=== PATIENT | female | born 1995 | race Two or more races ===

== ENCOUNTER → 2020-11-24 | Outpatient (CLI) | payer OTHER ==
[2020-11-24 16:08] LABS: ALBUMIN 3.7 GM/DL (3.2-5.2); ALT/SGPT 34 U/L (12-78); BILIRUBIN,TOTAL 1.2 MG/DL (0.2-1.0); BLOOD UREA NITROGEN 12 MG/DL (7-18); CALCIUM LEVEL 8.7 MG/DL (8.5-10.1); CARBON DIOXIDE LEVEL 27 MEQ/L (21-32); CHLORIDE LEVEL 107 MEQ/L (98-107); CHOLESTEROL LEVEL 204 MG/DL (<200); CREATININE FOR GFR 0.74 MG/DL (0.55-1.30); FREE T4 0.79 NG/DL (0.76-1.46); GLOMERULAR FILTRATION RATE > 60.0 (>60); GLUCOSE, FASTING 75 MG/DL (70-100); HDL CHOLESTEROL 75 MG/DL (>40); LDL CHOLESTEROL 119 MG/DL (<100); NON-HDL-C 129 MG/DL; POTASSIUM SERUM 4.7 MEQ/L (3.5-5.1); SODIUM LEVEL 136 MEQ/L (136-145); TOTAL PROTEIN 7.6 GM/DL (6.4-8.2); TRIGLYCERIDES LEVEL 48 MG/DL (<150)
[2020-11-24 16:11] LABS: TOTAL 25(OH) VITAMIN D 21.9 NG/ML (30.0-100.0)
== END ==
LOC: M PLALAB 11:39
PROVIDERS: ATTEND Nurse Practitioner Family
DX: Z13.1 Encounter for screening for diabetes mellitus (principal); Z13.220 Encounter for screening for lipoid disorders; E55.9 Vitamin D deficiency, unspecified

== ENCOUNTER 2021-01-15 17:51 | Emergency (ER) | payer OTHER ==
[~2021-01-15] VITALS: Ht 165.1 cm; Wt 51.5 kg
--- OUTSIDE RECORDS SUMMARY | 2021-01-15 17:58 | CCD ---
Author Author [facility] Organization [facility] Address Unknown Phone Unavailable Care Team Providers Care Facial Operator Name Role Phone MARIA L, M AMANDA CNM Unavailable Unavailable MARIA L, M AMANDA CNM Unavailable Unavailable MARIA L, M AMANDA CNM Unavailable Unavailable MARIA L, M AMANDA CNM Unavailable Unavailable MARIA L, M AMANDA CNM Unavailable Unavailable MARIA L, M AMANDA CNM Unavailable Unavailable MARIA L, M AMANDA CNM Unavailable Unavailable MARIA L, M AMANDA CNM Unavailable Unavailable MARIA L, M AMANDA CNM Unavailable Unavailable MARIA L, M AMANDA CNM Unavailable Unavailable MARIA L, M AMANDA CNM Unavailable Unavailable MARIA L, M AMANDA CNM Unavailable Unavailable MARIA L, M AMANDA CNM Unavailable Unavailable MARIA L, M AMANDA CNM Unavailable Unavailable MARIA L, M AMANDA CNM Unavailable Unavailable MARIA L, M AMANDA CNM Unavailable Unavailable MARIA L, M AMANDA CNM Unavailable Unavailable MARIA L, M AMANDA CNM Unavailable Unavailable MARIA L, M AMANDA CNM Unavailable Unavailable MARIA L, M AMANDA CNM Unavailable Unavailable MARIA L, M AMANDA CNM Unavailable Unavailable MARIA L, M AMANDA CNM Unavailable Unavailable MARIA L, M AMANDA CNM Unavailable Unavailable MARIA L, M AMANDA CNM Unavailable Unavailable MARIA L, M AMANDA CNM Unavailable Unavailable MARIA L, M AMANDA CNM Unavailable Unavailable MARIA L, M AMANDA CNM Unavailable Unavailable MARIA L, M AMANDA CNM Unavailable Unavailable MARIA L, M AMANDA CNM Unavailable Unavailable MARIA L, M AMANDA CNM Unavailable Unavailable MARIA L, M AMANDA CNM Unavailable Unavailable MARIA L, M AMANDA CNM Unavailable Unavailable MARIA L, M AMANDA CNM Unavailable Unavailable Tino ZARATE CNM Unavailable Unavailable Nba NEFF MD Unavailable Unavailable Nba NEFF MD Unavailable Unavailable Nba NEFF MD Unavailable Unavailable Nba NEFF MD Unavailable Unavailable Nba NEFF MD Unavailable Unavailable Nba NEFF MD Unavailable Unavailable Nba NEFF MD Unavailable Unavailable Nba NEFF MD Unavailable Unavailable Nba NEFF MD Unavailable Unavailable Nba NEFF MD Unavailable Unavailable Nba NEFF MD Unavailable Unavailable Nba NEFF MD Unavailable Unavailable Nba NEFF MD Unavailable Unavailable Nba NEFF MD Unavailable Unavailable Nba NEFF MD Unavailable Unavailable Nba NEFF MD Unavailable Unavailable Nba NEFF MD Unavailable Unavailable Nba NEFF MD Unavailable Unavailable Nba NEFF MD Unavailable Unavailable Nba NEFF MD Unavailable Unavailable Nba NEFF MD Unavailable Unavailable Nba NEFF MD Unavailable Unavailable Nba NEFF MD Unavailable Unavailable Nba NEFF MD Unavailable Unavailable Gordo, L Janee WOOL MIXER Unavailable Unavailable Gordo, L Janee WOOL MIXER Unavailable Unavailable Gordo, L Janee WOOL MIXER Unavailable Unavailable Gordo, L Janee WOOL MIXER Unavailable Unavailable Gordo, L Janee WOOL MIXER Unavailable Unavailable Gordo, L Janee WOOL MIXER Unavailable Unavailable Gordo, L Janee WOOL MIXER Unavailable Unavailable Gordo, L Janee WOOL MIXER Unavailable Unavailable Gordo, L Janee WOOL MIXER Unavailable Unavailable Gordo, L Janee WOOL MIXER Unavailable Unavailable Gordo, L Janee WOOL MIXER Unavailable Unavailable Gordo, L Janee WOOL MIXER Unavailable Unavailable Gordo, L Janee WOOL MIXER Unavailable Unavailable LAROCK, J ANTONIA WOOL MIXER Unavailable Unavailable LAROCK, Mica ANTONIA WOOL MIXER Unavailable Unavailable LAROCK, J ANTONIA WOOL MIXER Unavailable Unavailable LAROCK, J ANTONIA WOOL MIXER Unavailable Unavailable LAROCK, J ANTONIA WOOL MIXER Unavailable Unavailable LAROCK, J ANTONIA WOOL MIXER Unavailable Unavailable LAROCK, J ANTONIA WOOL MIXER Unavailable Unavailable LAROCK, J ANTONIA WOOL MIXER Unavailable Unavailable LAROCK, J ANTONIA WOOL MIXER Unavailable Unavailable LAROCK, J ANTONIA WOOL MIXER Unavailable Unavailable LAROCK, J ANTONIA WOOL MIXER Unavailable Unavailable LAROCK, J ANTONIA WOOL MIXER Unavailable Unavailable LAROCK, J ANTONIA WOOL MIXER Unavailable Unavailable LAROCK, Mica KNIGHT WOOL MIXER Unavailable Unavailable LAROCK, J ANTONIA WOOL MIXER Unavailable Unavailable LAROCK, J ANTONIA WOOL MIXER Unavailable Unavailable LAROCK, Mica KNIGHT WOOL MIXER Unavailable Unavailable LAROCK, Mica KNIGHT WOOL MIXER Unavailable Unavailable LAROCK, Mica KNIGHT WOOL MIXER Unavailable Unavailable LAROCK, Mica KNIGHT WOOL MIXER Unavailable Unavailable LAROCK, Mica KNIGHT WOOL MIXER Unavailable Unavailable LAROCK, Mica KNIGHT WOOL MIXER Unavailable Unavailable [facility], [facility] Unavailable Unavailable Sousou, Sandy PA Unavailable Unavailable Sousou, Sandy PA Unavailable Unavailable Sousou, Sandy PA Unavailable Unavailable Sousou, Sandy PA Unavailable Unavailable Sousou, Sandy PA Unavailable Unavailable Sousou, Sandy PA Unavailable Unavailable Sousou, Sandy PA Unavailable Unavailable Sousou, Sandy PA Unavailable Unavailable Sousou, Sandy PA Unavailable Unavailable Sousou, Sandy PA Unavailable Unavailable Sousou, Sandy PA Unavailable Unavailable Sousou, Sandy PA Unavailable Unavailable Sousou, Sandy PA Unavailable Unavailable Sousou, Sandy PA Unavailable Unavailable Sousou, Sanyd PA Unavailable Unavailable Sousou, Sandy PA Unavailable Unavailable Sousou, Sandy PA Unavailable Unavailable Sousou, Sandy PA Unavailable Unavailable TURRIN, EMIR Unavailable Unavailable TURRIN, EMIR Unavailable Unavailable TURRIN, EMIR Unavailable Unavailable TURRIN, EMIR Unavailable Unavailable Groch, R Marvin DO Unavailable Unavailable Groch, R Marvin DO Unavailable Unavailable Groch, R Marvin DO Unavailable Unavailable Groch, R Marvin DO Unavailable Unavailable Groch, R Marvin DO Unavailable Unavailable Groch, R Marvin DO Unavailable Unavailable Groch, R Marvin DO Unavailable Unavailable Groch, R Marvin DO Unavailable Unavailable Groch, R Marvin DO Unavailable Unavailable Groch, R Marvin DO Unavailable Unavailable Groch, R Marvin DO Unavailable Unavailable Groch, R Marvin DO Unavailable Unavailable Groch, R Marvin DO Unavailable Unavailable Groch, R Marvin DO Unavailable Unavailable Groch, R Marvin DO Unavailable Unavailable Groch, R Marvin DO Unavailable Unavailable Groch, R Marvin DO Unavailable Unavailable Groch, R Marvin DO Unavailable Unavailable Groch, R Marvin DO Unavailable Unavailable Groch, R Marvin DO Unavailable Unavailable Groch, R Marvin DO Unavailable Unavailable Groch, R Marvin DO Unavailable Unavailable Groch, R Marvin DO Unavailable Unavailable Groch, R Marvin DO Unavailable Unavailable Groch, R Marvin DO Unavailable Unavailable Groch, R Marvin DO Unavailable Unavailable Groch, R Marvin DO Unavailable Unavailable Groch, R Marvin DO Unavailable Unavailable Groch, R Marvin DO Unavailable Unavailable Groch, R Marvin DO Unavailable Unavailable [facility] Unavailable Unavailable Ellie, Kalin Unavailable Unavailable Ellie, Kalin Unavailable Unavailable Ellie, Kalin Unavailable Unavailable Ellie, Kalin Unavailable Unavailable Ellie, Kalin Unavailable Unavailable Pavel, Arif Unavailable Unavailable Pavel, Arif Unavailable Unavailable Pavel, Arif Unavailable Unavailable Pavel, Arif Unavailable Unavailable Pavel, Arif Unavailable Unavailable Pavel, Arif Unavailable Unavailable Pavel, Arif Unavailable Unavailable Pavel, Arif Unavailable Unavailable Pavel, Arif Unavailable Unavailable Pavel, Arif Unavailable Unavailable Pavel, Arif Unavailable Unavailable Pavel, Arif Unavailable Unavailable Pavel, Arif Unavailable Unavailable Pavel, Arif Unavailable Unavailable Pavel, Arif Unavailable Unavailable Pavel, Arif Unavailable Unavailable Pavel, Arif Unavailable Unavailable Pavel, Arif Unavailable Unavailable Pavel, Arif Unavailable Unavailable Pavel, Arif Unavailable Unavailable Pavel, Arif Unavailable Unavailable Pavel, Arif Unavailable Unavailable Pavel, Arif Unavailable Unavailable Pavel, Arif Unavailable Unavailable Pavel, Arif Unavailable Unavailable Pavel, Arif Unavailable Unavailable Pavel, Arif Unavailable Unavailable Pavel, Arif Unavailable Unavailable Pavel, Arif Unavailable Unavailable Pavel, Arif Unavailable Unavailable Pavel, Arif Unavailable Unavailable Pavel, Arif Unavailable Unavailable Pavel, Arif Unavailable Unavailable Pavel, Arif Unavailable Unavailable Pavel, Arif Unavailable Unavailable Pavel, Arif Unavailable Unavailable Pavel, Arif Unavailable Unavailable Pavel, Arif Unavailable Unavailable Pavel, Arif Unavailable Unavailable Re-disclosure Warning The records that you are about to access may contain information from federally-assisted alcohol or drug abuse programs. If such information is present, then the following federally mandated warning applies: This information has been disclosed to you from records protected by federal confidentiality rules (42 CFR part 2). The federal rules prohibit you from making any further disclosure of this information unless further disclosure is expressly permitted by the written consent of the person to whom it pertains or as otherwise permitted by 42 CFR part 2. A general authorization for the release of medical or other information is NOT sufficient for this purpose. The Federal rules restrict any use of the information to criminally investigate or prosecute any alcohol or drug abuse patient.The records that you are about to access may contain highly sensitive health information, the redisclosure of which is protected by Article 27-F of the [facility] Public Health law. If you continue you may have access to information: Regarding HIV / AIDS; Provided by facilities licensed or operated by the [facility] Office of Mental Health; or Provided by the [facility] Office for People With Developmental Disabilities. If such information is present, then the following [facility] mandated warning applies: This information has been disclosed to you from confidential records which are protected by state law. State law prohibits you from making any further disclosure of this information without the specific written consent of the person to whom it pertains, or as otherwise permitted by law. Any unauthorized further disclosure in violation of state law may result in a fine or fci sentence or both. A general authorization for the release of medical or other information is NOT sufficient authorization for further disc losure. Allergies and Adverse Reactions Type Description Substance Reaction Status Data Source(s ) Drug allergy Penicillins Penicillins R[facility]ES [facility] Drug allergy Penicillins Penicillin RASH/HIVES [facility] Propensity to adverse reactions PENICILLINS PENICILLINS Hives [facility] Family History Family Member Name Family Member Gender Family Member Status Date o f Status Description Data Source(s) Unknown Condition [facility] Encounters Encounter Providers Location Date Indications Data Source(s ) Outpatient [address], [place] [id number] 10/28/2020 12:00:00 AM EDT eCW1 ([facility]) Outpatient Attender: ANTONIA PINA NP 10/02 01:15:26 PM EDT - 10/15/2020 03:07:35 PM EDT [facility] ([facility] ) Outpatient [address], [place] [id number] 09/22/2020 12:00:00 AM EDT [facility]CW1 [facility] Outpatient [address], [place] [id number] 09/12/2020 12:00:00 AM EDT [facility]CW1 [facility] Outpatient [address], [place] [id number] 09/08/2020 12:00:00 AM EDT [facility] Attender: AMANDA ZARATE CNM 09/05/2020 01:20: 00 PM EDT 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 Outpatient Attender: CYNTHIA NEFF MD 08/29 10:30:43 AM EDT - 08/29/2020 11:10:54 AM EDT [facility] ([facility] ) Outpatient Attender: Marvin Merino DO 08/26/2020 11:59:00 PM EDT [facility], Emergency Attender: Kalin Argueta 09:26:00 AM EDT - 07/24/2020 10:35:[address] [facility] Sinus Congestion Patient discharged. Outpatient [address], [place] [id number] 07/13/2020 12:00:00 AM EDT eCW1 ([facility]) Outpatient Attender: Janee Caro NP 07/08/2020 01:51:00 PM EDT OCO/PPD [facility] OCO/PPD Outpatient Attender: ANDER HAMReferrer: Jean Claude Zhao RGHL MAGGIE-RGHLMYER 06/18/2020 09:58:16 AM EDT - 06/18/2020 11:59:16 PM EDT [facility] Patient discharged. Outpatient Attender: Jean Claude Zhao 06/18/2020 09:58:00 AM EDT [facility] Outpatient Attender: Jean Claude Zhao RMGSP-[id number] 021 11:50:29 AM EDT - 06/17/2020 01:00:31 PM EDT [facility] Patient discharged. Outpatient Attender: Janee Caro NP 06/06/2020 03:29:00 PM EST [facility] Out[facility] [address], [place] [id number] 04/16/2020 12:00:00 AM EST eCW1 ([facility]) Outpatient Attender: Sandy NAYLOR 04/15/2020 11:00:00 PM EST Client/CPCOP [facility] Client/CPCOP Outpatient [address], [place] [id number] 04/15/2020 12:00:00 AM EST [facility] Outpatient [address], [place] [id number] 04/13/2020 12:00:00 AM EST [facility] Outpatient [address] [place], [place] [id number] 03/13/2020 12:00:00 AM EST eCW1 ([facility]) Outpatient [address] [place], [place] [id number] 03/12/2020 12:00:00 AM EST eCW1 ([facility]) Outpatient [address] [place], [place] [id number] 03/11/2020 12:00:00 AM EST eCW1 ([facility]) Outpatient [address], [place] [id number] 02/19/2020 12:00:00 AM EST [facility]CW1 ([facility]) Outpatient [address] [place], [place] [id number] 02/14/2020 12:00:00 AM EST eCW1 ([facility]) Outpatient [address] [place], [place] [id number] 02/12/2020 12:00:00 AM EST eCW1 ([facility]) Outpatient [address] [place], [place] [id number] 02/12/2020 12:00:00 AM EST eCW1 ([facility]) Outpatient [address], [place] [id number] 02/04/2020 12:00:00 AM EST eCW1 ([facility]) Outpatient Attender: ANTONIA PINA NP 01/04 06:36:57 PM EDT - 02/02/2020 11:44:48 PM EDT [facility] ([facility] ) Immunizations Vaccine Date Status Description Data Source(s) Tdap 03/11/2020 12:34:00 PM EST completed e CW1 ([facility]) Tdap 03/11/2020 12:34:00 PM EST completed e CW1 ([facility]) Tdap 03/11/2020 12:34:00 PM EST completed e CW1 ([facility]) Tdap 03/11/2020 12:34:00 PM EST completed e CW1 ([facility]) Tdap 03/11/2020 12:34:00 PM EST completed e CW1 ([facility]) Tdap 03/11/2020 12:34:00 PM EST completed e CW1 ([facility]) Medications Medication Brand Name Start Date Product Form Dose Route Admi nistrative Instructions Pharmacy Instructions Status Indications Reaction Description Data Source(s) hydrocortisone acetate 25 MG/ML / Pramox ine hydrochloride 10 MG/ML Rectal Cream [Analpram HC] Analpram-HC 2.5%-1% Analpram-HC 2.5%-1% 09/05/2020 12:00:00 AM EDT 1.0 {appful} active Analpram-HC 2.5%-1% eCW1 ([facility]) Fluticasone Propionate (Flonase Allergy Relief) 50 mcg/actuation spray,suspension 07/24/2020 10:24:21 AM EDT UNASSIGNED [address] [facility] Metronidazole 500 MG Oral Tablet metronidazole 500 mg metron idazole 500 mg 04/16/2020 12:00:00 AM EST 1.0 {tab(s)} active metronidazole 500 mg eCW1 ([facility]) Metronidazole 500 MG Oral Tablet metronidazole 500 mg metron idazole 500 mg 04/16/2020 12:00:00 AM EST 1.0 {tab(s)} active metronidazole 500 mg eCW1 ([facility]) Fluconazole 150 MG Oral Tablet fluconazole 150 mg fluconazol e 150 mg 04/15/2020 12:00:00 AM EST 1.0 {tab(s)} active fl uconazole 150 mg eCW1 ([facility]) Fluconazole 150 MG Oral Tablet fluconazole 150 mg fluconazol e 150 mg 04/15/2020 12:00:00 AM EST 1.0 {tab(s)} active fl uconazole 150 mg eCW1 ([facility]) Fluconazole 150 MG Oral Tablet fluconazole 150 mg fluconazol e 150 mg 04/15/2020 12:00:00 AM EST 1.0 {tab(s)} active fl uconazole 150 mg eCW1 ([facility]) Kyleena 19.5 mg Kyleena 19.5 mg 02/19/2020 12:00:00 AM EST 1.0 { ea} active Kyleena 19.5 mg eCW1 ([facility]) Kyleena 19.5 mg Kyleena 19.5 mg 02/19/2020 12:00:00 AM EST 1.0 { ea} active Kyleena 19.5 mg eCW1 ([facility]) Kyleena 19.5 mg Kyleena 19.5 mg 02/19/2020 12:00:00 AM EST 1.0 { ea} active Kyleena 19.5 mg eCW1 ([facility]) Kyleena 19.5 mg Kyleena 19.5 mg 02/19/2020 12:00:00 AM EST 1.0 { ea} active Kyleena 19.5 mg eCW1 ([facility]) Kyleena 19.5 mg Kyleena 19.5 mg 02/19/2020 12:00:00 AM EST 1.0 { ea} active Kyleena 19.5 mg eCW1 ([facility]) Kyleena 19.5 mg Kyleena 19.5 mg 02/19/2020 12:00:00 AM EST 1.0 { ea} active Kyleena 19.5 mg eCW1 ([facility]) Insurance Providers Payer name Policy type / Coverage type Policy ID Covered alliance party ID Covered alliance party's relationship to whelan Policy Whelan Plan Information SELF PAY [employer] [facility] emp [id number] Employee [id number] [facility] [id number] Self [id number] SELF PAY SELF PAY SELF PAY SELF [place]Y [place] [id number] SP [id number] SELF PAY EAST [id number] SP [id number] Self 01 [id number] EAST [id number] SP [id number] SELF PAY [place] - O/P [id number] 01 [id number] FFS Self Pay Employee [employer] [employer] [facility] [id number] [facility] [id number] Problems, Conditions, and Diagnoses Code Display Name Description Problem Type Effective Dates Data Source(s) Z11.3 Encounter for screening for infections with a predominantly sexual mode of transmission Z11.3 - Encounter for screening for infe ctions with a predominantly sexual mode of transmission Diagnosis 09/05/2020 01:20:00 PM EDT [facility] Z12.4 Encounter for screening for malignant ne oplasm of cervix Z12.4 - Encounter for screening for malignant neoplasm of cervix Diagnosis 021 01:17:[address] [facility] Y[address] or not applicable Unspecified place or not applicable Diagnosis 09/01/2020 08:49:00 AM EDT [facility] [id number] Exposure to other specified factors, ini tial encounter Exposure to other specified factors, initial encounter Diagnosis 09/01/2020 08:49:00 AM EDT [facility] [id number] Laceration without foreign body of vagin a and vulva, initial encounter Laceration without foreign body of vagina and vulva, initial encounter Diagnosis 09/01/2020 08:49:00 AM EDT [facility] R51.9 R51.9 - Headache, unspecified R51.9 - Headache, unspec ified Diagnosis 07/24/2020 09:26:[address] [facility] R09.81 Nasal congestion R09.81 - Nasal congestion Diagnosis 07/24/2020 09:26:00 AM EDT [facility] R63.4 Abnormal weight loss Abnormal weight loss Diagnosis 06/18/2020 09:58:16 AM EDT [facility] Z20.2 Contact with and (suspected) exposure to infections with a predominantly sexual mode of transmission Contact with and (suspected) exposure to infections with a predominantly sexual mode of transmission Diagnosis 06/18 09:58:16 AM EDT [facility] F17.290 Nicotine dependence, other tobacco produ ct, uncomplicated Nicotine dependence, other tobacco product, uncomplicated Diagnosis 06/17 12:31:27 PM EDT [facility] Labs Only Labs Only Diagnosis 06/17/2020 11:50:29 AM ED T [facility] Establish Care Establish Care Diagnosis 06/17/2020 11:50: 29 AM EDT [facility] Z00.00 Encounter for general adult medical examination without abnormal findings Encounter for general adult medical examination withou t abnormal findings Diagnosis 06/17/2020 11:50:29 AM EDT [facility] K64.1 [id number] Grade II hemorrhoids Problem 09/12/2020 12:0 0:00 AM EDT eCW1 ([facility]) S31.41XD [id number] Laceration of vulva, subsequent encounter Problem 09/12/2020 12:00:00 AM EDT eCW1 ([facility]) S31.41XA [id number] Laceration of vulva, initial encounter Pr oblem 09/05/2020 12:00:00 AM EDT eCW1 ([facility]) Z30.432 [id number] Encounter for IUD removal Problem 02/19/2020 12:00:00 AM EST eCW1 ([facility]) Surgeries/Procedures No Information Results ID Date Data Source [id number] 09/19/2020 08:35:00 AM EDT [place]: 09/19/20834 INTERFACED REPORT Name: Gallo Andrade Age/Sex: 25/F Location: [facility] Acct: [id number] Unit: [id number] Status: REG REF Room/Bed: Re09/05/20 Disch: Att Dr: Amanda Zarate Spec Num: [id number] Recd: 09/08/20 Status: KRYSTAL Adler Num: [id number] SpType: CYTOLOGY Sub Dr: Amanda Zarate Specimen SubmittedThin Prep Image Guided NON- CLIENT Z12.4 : ENCOUNTER FOR SCREENING FOR MALIGNANT NEOPLASM OF CERVIX, CERVICAL, LMP 08/22/20 Specimen Adequacy Satisfactory for evaluation Endocervical/transformation zone component present. General Categorizat ion Negative for Intraepithelial Lesion or Malignancy Descriptive Diagnosis Reactive Cellular Changes. Anucleated Squamous cells consistent with Hyperkeratosis Fungal Elements Present Consistent with Cristina SP. Specimen Identification Verified. Reviewing Emergency Management Specialist [place]: 09/19/20834 INTERFACED REPORT Signed Andry Diaz MD 09/19/2035 END OF REPORT Name Value Range Interpretation Code Description Data [facility] rce(s) Supporting Document(s) ID Date Data Source [id number] 09/05/2020 03:22:00 PM EDT [facility] Name Value Range Interpretation Code Description [facility]s) CRISTINA BY DNA PROBE POSITIVE NEGATIVE [facility] GARDNERELLA BY DNA PROBE NEGATIVE NEGATIVE [facility] TRICHOMONAS BY DNA PROBE NEGATIVE NEGATIVE [facility] TESTING PERFORMED BY NUCLEIC ACID HYBRI DIZATION ID Date Data Source [id number] 09/08/2020 02:51:00 PM EDT [facility] Name Value Range Interpretation Code Description Data [facility] Supporting Document(s) CHLAMYDIA, GENITAL NEGATIVE NEGATIVE [facility] GC, Genital NEGATIVE NEGATIVE [facility] ID Date Data Source [id number] 09/01/2020 08:49:00 AM EDT [facility] 1 Medication Reconciliation Report [facility] Emergency Department [address] [place] [address] Phone #: [phone] 09/01/2020 08:47 Patient: GALLO ANDRADE Sex: F : 1995 Age: 25yWeight: 52.1 kgHeight/Length: 65 in.BMI: 19.1ALLERGIES: PenicillinsThe patient's Home Medications are listed below:NONE.The source(s) of the original Home Medication information:Not obtained.The following Medications were given to the patient in the Emergency Department:None.The following Medi cations were prescribed to the patient:None. Name Value Range Interpretation Code Description Data [facility] Supporting Document(s) ID Date Data Source [id number] 09/01/2020 08:49:00 AM EDT [facility] 1 Medication Administration Record [facility] Emergency Department [address] [place] [address] Phone #: ext [phone] 09/01/2020 08:47 Patient: GALLO ANDRADE Sex: F : 1995 Age: 25yWeight: 52.1 kgHeight/Length: 65 inBMI: 19.1ALLERGIES: PenicillinsDate/Time Medication Administered Medication Ordered Name Value Range Interpretation Code Description Data Jenny rce(s) Supporting Document(s) ID Date Data Source [id number] 09/01/2020 08:49:00 AM EDT [facility] 1 General Instructions [facility] Emergency Department [address] [place] [address] Phone #: ext- [phone] 09/01/2020 08:47 Patient: GALLO ANDRADE Sex: F : 1995 Age: 25ySmall Traumatic Skin Tear (Perineum).INSTRUCTIONS (PLEASE USE WARM SITZ BATHS AND TRIPLE ANTIBIOTIC NEEDED 3-4 TIMES PER DAY; FOLLOW UP WITH FOOD SALES CLERK IN NEXT FEW DAYS).Warnings: Further evaluation is necessary (FOOD SALES CLERK). It is very important to follow up with a healthcare provider.GENERAL WARNINGS: Return or contact your physician immediately if your condition worsens orchanges unexpectedly, if not improving as expected, or if other problems arise. Specifically return if pain,vomiting, bleeding, breathing difficulty or fever greater than 102 degrees F and not controlled byacetaminophen or ibuprofen.Your Current Medications: .No home medication.Follow-up:Return to the emergency department as needed. Follow up with a ash worker in three days even if well.Call for an appointment. Reason for referral: evaluation and treatment. Summary of care provided topatient via p aper.Understanding of the discharge instructions verbalized by patient. Expected course of injury, dischargeinstructions, activity level, diet, follow-up appointment and risks and benefits of treatment reviewed withpatient and spouse and understanding verbalized. Agrees to plan of care.Follow-up with: [facility], , , [address], [place], [facility] Follow up in three days even if well. Call for an appointment. Reason for referral: evaluation andtreatment. Summary of care provided to patient via paper. 2 General Instructions [facility] Emergency Department [address] [place] [address] Phone #: ext- [phone] 09/01/2020 08:47 Patient: GALLO ANDRADE Sex: F : 1995 Age: 25y(Electronically signed by Emir Morris M.D. 09/01/2020 09:55) Name Value Range Interpretation Code Description Data Jenny rce(s) Supporting Document(s) ID Date Data Source [id number] 09/01/2020 08:49:00 AM EDT [facility] 1 Clinical Report - Nurses [facility] Emergency Department [address] [place] [address] Phone #: ext- [phone] 09/01/2020 08:47 Patient: GALLO ANDRADE Sex: F : 1995 Age: 25yTRIAGEArrived by private vehicle. Historian: patient.Triage time: 08:56 09/01/2020. Acuity: LEVEL 4.Chief Complaint: SKIN RASH and TENDER AREA.08:56 09/01/20. Alert. No acute distress.Reported as located on the perineum, vulva and perirectal area. Onset. (pain started 08/22, rash started 2days ago). It is described as painful.Treatment CLIENT RESOURCE SPECIALIST:([facility] given Rx for unknown ointment- Manas Mandel).SEPSIS SCREEN: SIRS SCREEN NEGATIVE. SEPSIS SCREEN NEGATIVE. No suspected or confirmedsigns of infection present. --09:03 09/01/20 Clover Becerra RN08:57 09/01/20. BP: 113/76. MAP: 88. HR: 86. RR: 16. O2 saturation: 100% on room air. Temp: 98.4 F(oral). Pain level now: 4/10. Describes the quality as "pain". It has been constant. Pain level at maximum:4/10. No radiation noted. No provoking / relieving factors. --09:03 09/01/20 Clover Becerra RN.Weight: 52.1 kg stated. Height/Length: 65 inches Per Patient. BMI: 19.1. --08:55 09/01/20 JUVENCIO De La Cruz.MedicationsNone. --09:05 09/01/20 Clover Becerra RN.AllergiesPenicillins.(hives) --09:00 09/01/20 Clover torres RN.Qobpgvu83:56 09/01/20.PAST MEDICAL HX: Immunizations: up-to-date. Last normal menstrual period- August 22.SOCIAL HX: Never smoker. No alcohol use or drug use. She was offered HIV testing but declined andhepatitis C testing but declined. She has not traveled outside the [place]Infectious disease exposure: No infectious disease exposure. (Negative COVID screen). Patient is not aknown carrier of tuberculosis, hepatitis, HIV, MRSA or VRE. Patient is not a known carrier of CRE.SELF HARM ASSESSMENT: Self harm assessment was performed. The patient answered "no" to thequestion(s) "Do you have thoughts of harming or killing yourself?" and "Have you recently had thoughts 2 Clinical Report - Nurses [facility] Emergency Department [address] [place] [address] Phone #: ext- [phone] 09/01/2020 08:47 ---- Patient: GALLO ANDRADE Sex: F : 1995 Age: 25y about harming or killing others?". ABUSE ASSESSMENT: Abuse assessment. The patient had positive responses to the question(s) "Do you feel safe in your home?" (yes). Abuse denied. No report of abuse. NUTRITIONAL RISK ASSESSMENT: The nutritional risk assessment revealed no deficiencies. FUNCTIONAL ASSESSMENT: Functional assessment: no impairments noted. LEARNING NEEDS ASSESSMENT: The learning needs assessment revealed no barriers. FALL RISK ASSESSMENT: Fall risk assessment completed. No risk factors identified. SKIN INTEGRITY ASSESSMENT: Skin integrity risk assessment completed. No skin integrity risk identified. --09:03 09/01/20 Clover Becerra RN. Interventions 08:56 09/01/20. To treatment room. Ambulatory by hospital staff. room 1A. --09:03 09/01/20 Clover Becerra RN.PHYSICAL [id number] 09/01/20. Ambulatory to room.GENERAL / NEURO / PSYCH: Alert. The patient does not appear to be in acute distress. Oriented X 4.HEENT: Mucous membranes are p ink.RESPIRATORY: Respirations not labored.CVS: Pulses within normal limits.GI / : Abdomen nontender.SKIN: Skin is intact. Tender skin rash on the perineum, vulva and perirectal area- no rash visualized.--09:05 09/01/20 Clover Becerra RN.NURSING PROGRESS NOTES08:57 09/01/20. Patient gowned. Head of bed elevated. Two patient identifiers checked. Call lightplaced in reach. Side rails up. Bed placed in lowest position. Brakes of bed on. Patient ready forevaluation- ED physician notified. --09:03 09/01/20 Clover Becerra RN 09:25 09/01/20. Stonemason Apprentice provided for the genital exam by the physician and to witness discussions. --09:40 09/01/20 Clover Becerra RN.DISPOSITION / DISCHARGE 09:38 09/01/20. Condition at departure: stable. No learning barriers present. Discharge instructions provided and reviewed with the patient. Patient verbalized understanding. Written instructions provided in Slovak. The patient was discharged home and accompanied by spouse. She left ambulatory and via private vehicle. Spouse driving. --09:39 09/01/20 Clover Becerra RN 3 Clinical Report - Nurses [facility] Emergency Department [address] [place] [address] Phone #: ext- [phone] 09/01/2020 08:47 Patient: GALLO ANDRADE Sex: F : 1995 Age: 25y 09:37 09/01/20. BP: 110/72. MAP: 84. HR: 88. RR: 16. O2 saturation: 100%. Temp: 98.2 F. Pain level now: 07/12. --09:39 09/01/20 Clover Becerra RN.Locked/Released at 09/01/2020 09:40 by Clover Becerra RN Name Value Range Interpretation Code Description Data Jenny rce(s) Supporting Document(s) ID Date Data Source [id number] 09/01/2020 08:49:00 AM EDT [facility] 1 Clinical Report - Physicians/Mid Levels [facility] Emergency Department [address] [place] [address] Phone #: ext- [phone] 09/01/2020 08:47 Patient: GALLO ANDRADE Sex: F : 1995 Age: 25y Time Seen: 09:06 09/01/2020; initial patient contact. Arrived- By private vehicle. Historian- patient. Disposition decision: 09:30 09/01/2020.HISTORY OF PRESENT ILLNESS Chief Complaint: TENDER AREA. This started 10 days ago and is still present. It is described as painful. It has been located on the vulva and perineum. No cause has been identified. Similar symptoms previously. None. Recent medical care: The patient was seen recently at another facility in a clinic. ( at on 08-29, was given zinc oxide cream).REVIEW OF SYSTEMSNo fever, chills, sore throat, cough or difficulty breathing. No hoarseness, lump in throat, enlarged lymphnodes, headache or eye irritation. No chest pain, abdominal pain, nausea, diarrhea or difficulty withurination. No genital lesions, joint pain, vomiting or vaginal discharge. All other systems reviewed andare negative.PAST HISTORYNegative. See nurses notes. Tetanus immunization status is up-to-date. Surgeries: No history of previous surgery. Medications: None. Allergies: Penicillins.(hives).SOCIAL HISTORYNever smoker. No alcohol use or drug use.ADDITIONAL NOTESThe nursing notes have been reviewed with agreement regarding the chief complaint, HPI, ROS, PMH andpatient medications and allergies.PHYSICAL EXAMVital Signs: 09/01/2020 08:57 BP: 113/76. MAP: 88. HR: 86. RR: 16. O2 saturation: 100% on room air.Temp: 98.4 F. Pain level now: 4/10. Have been reviewed. Oxygen saturation normal.Appearance: Alert. Oriented X3. No acute distress.Neck: Neck supple.Skin: Skin warm and dry. Normal skin color. No rash. Normal skin turgor. (pt has small open 2 Clinical Report - Physicians/Mid Levels [facility] Emergency Department [address] [place] [address] Phone #: ext- [phone] 09/01/2020 08:47 [id number] Sex: F : 1995 Age: 25y traumatic tear, fissure-like, at bottom corner of major labia, above perineum). Extremities: Normal external inspection. Extremities nontender. Neuro: Oriented X 3. No motor deficit.PROGRESS AND PROCEDURESCourse of Care: 09:28 09/01/20. pt has small traumatic tear above perineum, at bottom of major labia,probably from intercourse; warm sitz baths and triple AB recommended and we will refer to FOOD SALES CLERK; ptunderstands and agrees w d/c instructions. Patient and spouse counseled in person regarding the patient's stable condition, diagnosis and need for follow-up. Patient and spouse agrees with plan of care. Disposition: Condition: good and stable. Discharge decision based on the following: patient's condition is stable; patient's condition is improved; patient is ambulatory; patient is active; patient drinking fluids; patient eating; patient's pain is controlled; patient's exam is improved; improving condition on multiple repeat evaluations; social support is good; transportation is available; follow-up is available; clinical impression is consistent with outpatient treatment.CLINICAL IMPRESSION Small Traumatic Skin Tear (Perineum).INSTRUCTIONS (PLEASE USE WARM SITZ BATHS AND TRIPLE ANTIBIOTIC NEEDED 3-4 TIMES PER DAY; FOLLOW UP WITH FOOD SALES CLERK IN NEXT FEW DAYS). Warnings: Further evaluation is necessary (FOOD SALES CLERK). It is very im portant to follow up with a healthcare provider. GENERAL WARNINGS: Return or contact your physician immediately if your condition worsens or changes unexpectedly, if not improving as expected, or if other problems arise. Specifically return if pain, vomiting, bleeding, breathing difficulty or fever greater than 102 degrees F and not controlled by acetaminophen or ibuprofen. Your Current Medications: . No home medication. Follow-up: Return to the emergency department as needed. Follow up with a ash worker in three days even if well. Call for an appointment. Reason for referral: evaluation and treatment. Summary of care provided to patient via paper. 3 Clinical Report - Physicians/Mid Levels [facility] Emergency Department [address] [place] [address] Phone #: ext- [phone] 09/01/2020 08:47 Patient: GALLO ANDRADE Sex: F : 1995 Age: 25y Understanding of the discharge instructions verbalized by patient. Expected course of injury, discharge instructions, activity level, diet, follow-up appointment and risks and benefits of treatment reviewed with patient and spouse and understanding verbalized. Agrees to plan of care. Follow-up with: [facility], , , [address] [place] [address], [id number] Follow up in three days even if well. Call for an appointment. Reason for referral: evaluation and treatment. Summary of care provided to patient via paper.(Electronically signed by Emir Morris M.D. 09/01/2020 09:55) Name Value Range Interpretation Code Description Data Jenny rce(s) Supporting Document(s) ID Date Data Source [id number] 07/26/2020 03:42:00 PM [facility]T [facility] Spec[facility] Comment: Test(s) 122482-Dxhfih nza A, BASILIA; [id number]-Molnuogte B, BASILIA Specimen Comment: was developed and its performance characteristics Specimen Comment: determined by [facility]. It has not been cleared or approved Specimen Comment: by the Food and Drug Administration. Name Value Range Interpretation Code Description Data [facility] rce(s) Supporting Document(s) INFLUENZA A, BASILIA Not Detected Not Detected [facility] INFLUENZA B, BASILIA Not Detected Not Detected [facility] Performed at: RN - [facility] [address] [id number] Route Cdl Driver: Selina Garcia MD, Phone: [phone] ID Date Data Source [id number] 07/24/2020 10:25:00 AM EDT [facility] Name Value Range Interpretation Code Description Data Jenny rce(s) Supporting Document(s) SARS-CoV-2 (COVID-19) N gene [Presence] in Nasopharynx by BASILIA with probe detection DETECTED [facility] This lab was ordered by [facility] and reported by [facility]. ID Date Data Source [id number] 07/24/2020 04:31:[address] [facility] Have you tested POSITIVE for Covid-19 i n the last 90 days? No Patient presents as: Symptomatic COVID Reason ED patient Priority Critical Results called to [phone] by Rena Flor at 1631 on 07/24/20 Name Value Range Interpretation Code Description Data Jenny rce(s) Supporting Document(s) COVID 19 (RHEONIX) DETECTED NOTDETECTED A [facility] This Laboratory test Result is Evidence of a Communicable Disease, and if Diagnosed, must be brought to the Local Health Unit. The [employer] COVID-19 MDx Assay is an endpoint RT-PCR assay (MOLECULAR)intended for the qualitative detection of nucleic acid from SARS-CoV-2 in nasopharyngeal swabs. COVID testing using the [employer] analyzer was developed for the purpose of diagnostic testing during a declared public health emergency and has Emergency Use Authorization (EUA) from the FDA. The possibility of a false negative result should be considered if the patient's recent exposures or clinical presentation indicate that COVID-19 is likely, and diagnostic tests for other causes of illness (e.g., other respiratory illness) are negative. If COVID-19 is still suspected based on exposure history together with other clinical findings, re-testing should be considered by healthcare providers in consultation with public health authorities. ID Date Data Source [id number] 07/24/2020 10:20:00 AM EDT [address] [address] HEALTH INFORMATION MANAGEMENT ED/ Physician Report : [id number] Signed Patient: Gallo Andrade Acct:[id number] Unit: [id number] : 1995 Arrival Date: 07/24/20 Age/Sex: 24 / F Arrival Time: 09 Copies to: [facility] HPI/ROS General Chief Complaint: Throat Pain/Nasal Congestion Stated Complaint: Sinus Congestion Source: Patient Mode of arrival: Ambulatory Limitations: Reports No limitations History of Present Illness Initial Comments: 24-year-old female patient presenting to the emergency department with complaint of nasal congestion and sinus headache that started yesterday. She complains of mild nausea. Denies any fevers chills or shortness of breath. Patient states she has taken Aleve with without relief. She also been taking Mucinex without relief. She denies any sick contacts. Related Data Last Menstrual Period: July 17 Home Medications Medication Instructions Recorded fluticasone propionate [Flonase 1 spray INTRANASAL Q12H #16 g 07/24/20 Allergy Relief] Allergies Penicillins Allergy (Verified 07/24/20 09:45) RASH/HIVES Review of Systems Review of Systems All systems: Reviewed and negative except as stated in HPI. 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 Right nare with a questionable nasal polyp) Neck Neck Exam: Full ROM Cardiac Cardiac: Present: Regular rate and rhythm and Radial pulses normal equal Lung/Chest Lung/Chest Exam: Clear and Normal Exchange Neuro Neuro Normal: Alert, Oriented x 3, Sensory normal and Strength 5/5 all extremities Psych Psych Normal: Normal Affect Skin Skin exam: Dry, Intact, [place] and Warm Course Vital Signs Vi tameka signs: Vital Signs 07/24/20 09:36 Temperature 98.2 F Pulse Rate 74 Respiratory Rate 14 Blood Pressure 119/73 O2 Sat by Pulse Oximetry 98 Medical Decision Making/CCT Medical Decision Making Medical Decision Makin-year-old female presenting to the emergency department with complaints of nasal congestion and sinus headache. Symptoms started last night. 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 Patient will be tested today. She will also be given Flonase and has been encouraged to start taking [id number]-wkrjvkt antihistamines. For any worsening symptoms or persistent symptoms over 10 days she has been advised return to the ER or urgent care for re-evaluation. Patient is able to verbalize understanding. Discharge Plan Disposition Clinical Impression: URI (upper respiratory infection) Qualifiers: URI type: unspecified URI Qualified Code(s): J06.9 - Acute upper respiratory infection, unspecified Provider stated Dispo: Discharged Condition: Stable Instructions: Upper Respiratory Infection (ED), Cold Symptoms (ED) Activity Restrictions/Additional Instructions: Increase her fluids and rest. Use nasal spray as prescribed. Begin using myqq-paj-izqbett antihistamines as discussed. For any worsening symptoms return to the emergency department for re-evaluation. Prescriptions: New fluticasone propionate [Flonase Allergy Relief] 50 mcg/actuation spray,suspension 1 spray intra nasal Q12H Qty: 16 RF: 0 Referrals: *[facility] [Provider Group] Sandy Flores [place] [Primary Care Provider] - Stand Alone Forms: Portal Instructions Provider in triage note Vital Signs Vital Signs: I O (Last 24 Hours) 07/22/20 07/23/20 07/24/20 23:59 23:59 23:59 Other: Weight 52.2 kg Vital Signs (Last 8 Hours) Temp Pulse Resp BP Pulse Ox 07/24/20 09:36 98.2 F 74 14 119/73 98 Date/Time <<Signature on File>> Initializing User: Alissa Iraheta [facility] 07/24/20 1020 Signed by: Alissa Iraheta 07/24/20 1557 Kalin Argueta MD 07/25/20 0722 Name Value Range Interpretation Code Description Data Jenny rce(s) Supporting Document(s) ID Date Data Source [id number] 06/18/2020 09:00:00 PM EDT [facility] I have provided this patient pre-test co unseling for HIVtesting and they have consented to a screening test to bedrawn today:->YesRelease to patient- >ImmediateLab Collect Name Value Range Interpretation Code Description Data Jenny rce(s) Supporting Document(s) eGFR BLACK [facility] For both eGFR and eGFR BLACK, the accuracy of theeGFR calculation is contingent on a stable level of serumcreatinine. The eGFR calculation is based on an IDMS-Traceablecreatinine assay and is normalized to 1.73 "meters squared"body surface area. An eGFR less than 60 may alter clinicalmanagement decisions. An eGFR greater than or equal to 60 doesnot exclude kidney disease. ID Date Data Source [id number] 06/18/2020 09:00:00 PM EDT [facility] I have provided this patient pre-test co unseling for HIVtesting and they have consented to a screening test to [facility] today:->YesRelease to patient- >ImmediateLab Collect Name Value Range Interpretation Code Description Data Jenny rce(s) Supporting Document(s) TSH 0.55-4.78 Normal (applies to non-numeric resul ts) [facility] Method: Third Generation Ultrasensitive TSHTSH values may be falsely depressed, as low asless than 0.01 uIU/mL, for 48 to 72 hours in the presenceof fluorescein dyes. Please consider submitting samplesafter fluorescein clearance to prevent interference withTSH test results. ID Date Data Source [id number] 06/18/2020 09:00:00 PM EDT [facility] I have provided this patient pre-test co unseling for HIVtesting and they have consented to a screening test to bedraw today:->YesRelease to patient- >ImmediateLab Collect Name Value Range Interpretation Code Description Data Jenny rce(s) Supporting Document(s) HEP B SURF AG NEG [NEGATIVE] Normal (applies to non-numeric re sults) [facility] ID Date Data Source [id number] 06/18/2020 09:00:00 PM EDT [facility] I have provided this patient pre-test co unseling for HIVtesting and they have consented to a screening test to [facility] today:->YesRelease to patient- >ImmediateLab Collect Name Value Range Interpretation Code Description Data Jenny rce(s) Supporting Document(s) eGFR Health system ID Date Data Source [id number] 06/18/2020 09:00:00 PM EDT [facility] I have provided this patient pre-test co unseling for HIVtesting and they have consented to a screening test to [facility] today:->YesRelease to patient- >ImmediateLab Collect Name Value Range Interpretation Code Description Data Jenny rce(s) Supporting Document(s) HEP B SURF AB [facility] NOTE: Any result >=10 mIU/mL implies imm unity. ID Date Data Source [id number] 06/19/2020 12:39:00 PM EDT [facility] I have provided this patient pre-test co unseling for HIVtesting and they have consented to a screening test to [facility] today:->YesRelease to patient- >ImmediateLab Collect Name Value Range Interpretation Code Description Data Jenny rce(s) Supporting Document(s) HSV 1 GLYCOPROTEIN G AB, IGG <=0.8 Normal (applies to non-numeric results) [facility] <=0.8 AI NEGATIVE No HSV-1 IgG a ntibodies were detected.0.9-1.0 AI EQUIVOCAL A second sample should be drawn 4-6 weeks later and testing repeated.>=1.1 AI POSITIVE Indicates HSV-1 IgG antibodies were detected.. ID Date Data Source [id number] 06/19/2020 12:39:00 PM EDT [facility] I have provided this patient pre-test co unseling for HIVtesting and they have consented to a screening test to [facility] today:->YesRelease to patient- >ImmediateLab Collect Name Value Range Interpretation Code Description Data Jenny rce(s) Supporting Document(s) HSV 2 GLYCOPROTEIN G AB, IGG <=0.8 Normal (applies to non-numeric results) [facility] <=0.8 AI NEGATIVE No HSV-2 IgG a ntibodies were detected.0.9-1.0 AI EQUIVOCAL A second sample should be drawn 4-6 weeks later and testing repeated.>=1.1 AI POSITIVE Indicates HSV-2 IgG antibodies were detected. ID Date Data Source [id number] 06/19/2020 12:39:00 PM EDT [facility] I have provided this patient pre-test co unseling for HIVtesting and they [facility]:->YesRelease to patient- >ImmediateLab Collect Name Value Range Interpretation Code Description Data Jenny rce(s) Supporting Document(s) T PALLIDUM AB, TOTAL Non-Reactive Non-Reactive Normal (deepthi lies to non-numeric results) [facility] ID Date Data Source [id number] 06/18/2020 09:00:00 PM EDT [facility] I have provided this patient pre-test co unseling for HIVtesting and they have [facility]:->YesRelease to patient- >ImmediateLab Collect Name Value Range Interpretation Code Description Data Jenny rce(s) Supporting Document(s) SODIUM 136-145 Normal (applies to non-numeric resul ts) [facility] POTASSIUM 3.5-5.1 Normal (applies to non-numeric resul ts) [facility] CHLORIDE 99-109 Normal (applies to non-numeric resul ts) [facility] CO2 20-31 Normal (applies to non-numeric results) [facility] ANION GAP 4.0-16.0 Normal (applies to non-numeric resul ts) [facility] BUN 9-23 Normal (applies to non-numeric results) [facility] CREATININE 0.5-1.1 Normal (applies to non-numeric resul ts) [facility] GLUCOSE 60-140 Normal (applies to non-numeric resul ts) [facility] NOTE: Random Glucose range 60-140 mg/dl Fasting Glucose range 60-99 mg/dl CALCIUM 8.6-10.2 Normal (applies to non-numeric resul ts) [facility] TOTAL PROTEIN 5.7-8.2 Normal (applies to non-numeric re sults) [facility] ALBUMIN 3.5-5.2 Normal (applies to non-numeric resul ts) [facility] GLOBULIN 1.6-3.6 Normal (applies to non-numeric resul ts) [facility] A/G RATIO 1.1-1.8 Above high normal [facility] BILI, TOTAL 0.3-1.2 Normal (applies to non-numeric resu lts) [facility] AST 14-34 Normal (applies to non-numeric results) [facility] ALT 1-33 Normal (applies to non-numeric results) [facility] ALK PHOS 53-141 Below low normal [facility] ID Date Data Source [id number] 06/18/2020 09:00:00 PM EDT [facility] I have provided this patient pre-test co unseling for HIVtesting and they have consented to a screening test to [facility] today:->YesRelease to patient- >ImmediateLab Collect Name Value Range Interpretation Code Description Data Jenny rce(s) Supporting Document(s) HEPATITIS C ANTIBODY NEG [NEGATIVE] Normal (applies to non-num [place] results) [facility] ID Date Data Source [id number] 06/18/2020 09:00:00 PM EDT [facility] I have provided this patient pre-test co unseling for HIVtesting and they [facility]:->YesRelease to patient- >ImmediateLab Collect Name Value Range Interpretation Code Description Data Jenny rce(s) Supporting Document(s) HEP B CORE AB, TOTAL NEG [NEGATIVE] Normal (applies to non-num [place] results) [facility] ID Date Data Source [id number] 06/18/2020 06:40:00 PM EDT [facility] I have provided this patient pre-test co unseling for HIVtesting and they have consented to a screening test to [facility] today:->YesRelease to patient- >ImmediateLab Collect Name Value Range Interpretation Code Description Data Jenny rce(s) Supporting Document(s) HIV-1/2 Ag/Ab SCREEN Nonreactive NONREACTIVE Normal (deepthi lies to non-numeric results) [facility] NONREACTIVEFINAL INTERPRETATION Negati ve for antibodies to HIV-1, HIV-2 and P24 antigen.This information has been disclosed to you from CONFIDENTIALrecords which are protected by [facility] LAW. [place] prohibits you from making any further disclosure of thisinformation without the specific written consent of the personto whom it pertains, or as otherwise permitted by law.Any unauthorized further disclosure in violation of [place] may result in a fine or fci sentence or both. Generalauthorization for the release of medical or other informationis not, except in limited circumstances set forth in part 63,title 10, of [facility], sufficient authorization for furtherdisclosure. Disclosure of confidential HIV information thatoccurs as the result of a general authorization for therelease of medical or other information will be in violationof the state law and may result in a fine or a fci sentence..*IMPORTANT NOTICE*: Please note that current [facility] Department of Health Regulations require that patient`s name and address be provided for HIV-related testing. In the event that the laboratory is not provided with the patient`s name and/or address, you, being the physician, have a legal obligation as required by [facility], to report all cases of HIV infection, AIDS, or HIV-related illness. ID Date Data Source [id number] 06/18/2020 05:23:00 PM EDT [facility] I have provided this patient pre-test co unseling for HIVtesting and they [facility]:->YesRelease to patient- >ImmediateLab Collect Name Value Range Interpretation Code Description Data Jenny rce(s) Supporting Document(s) WBC 4.0-10.8 Normal (applies to non-numeric resul ts) [facility] RBC 3.80-5.20 Normal (applies to non-numeric resul ts) [facility] HGB 11.5-16.0 Normal (applies to non-numeric resul ts) [facility] HCT 34-47 Normal (applies to non-numeric results) [facility] MCV 81.0-99.0 Normal (applies to non-numeric resul ts) [facility] MCH 26.0-34.0 Normal (applies to non-numeric resul ts) [facility] MCHC 32.0-36.0 Normal (applies to non-numeric resul ts) [facility] RDW 11.5-15.0 Normal (applies to non-numeric resul ts) [facility] PLATELET COUNT 140-400 Normal (applies to non-numeric r esults) [facility] ID Date Data Source [id number] 04/15/2020 10:23:00 PM EST [facility] Name Value Range Interpretation Code Description Data Jenny rce(s) Supporting Document(s) CRISTINA BY DNA PROBE POSITIVE NEGATIVE [facility] GARDNERELLA BY DNA PROBE POSITIVE NEGATIVE [facility] TRICHOMONAS BY DNA PROBE NEGATIVE NEGATIVE [facility] TESTING PERFORMED BY NUCLEIC ACID HYBRI DIZATION ID Date Data Source [id number] 04/18/2020 11:08:00 AM EST [facility] Name Value Range Interpretation Code Description Data Jenny rce(s) Supporting Document(s) CHLAMYDIA, GENITAL NEGATIVE NEGATIVE [facility] GC, Genital NEGATIVE NEGATIVE [facility] ID Date Data Source VAGINOSIS (BV) TEST 04/15/2020 12:00:00 AM EST eCW1 ([facility]) Name Value Range Interpretation Code Description Data Jenny rce(s) Supporting Document(s) POSITIVE NEGATIVE eCW1 ([facility]) NEGATIVE NEGATIVE eCW1 ([facility]) POSITIVE NEGATIVE eCW1 ([facility]) ID Date Data Source - Blood Draw Venipuncture 03/12/2020 12:00:00 AM EST eCW1 ([facility]) Name Value Range Interpretation Code Description Data Jenny rce(s) Supporting Document(s) - Blood Draw Venipuncture eCW1 ([facility]) ID Date Data Source MMR (IGG) PANEL (MEASLES, MUMPS, RUBELLA) 03/12/2020 12:00:0 0 AM EST eCW1 ([facility]) Name Value Range Interpretation Code Description Data Jenny rce(s) Supporting Document(s) Measles virus IgG Ab [Units/volume] in Serum by Immunoassay 266.00 MEASLES AB (IGG), IMMUNE STATUS eCW1 ([facility]) Rubella virus IgG Ab [Units/volume] in Serum or Plasma by Immunoass ay 7.20 RUBELLA AB (IGG), IMMUNE STATUS eCW1 ([facility]) Mumps virus IgG Ab [Units/volume] in Serum by Immunoassay 218.00 MUMPS VIRUS AB (IGG), IMMUNE STATUS eCW1 ([facility]) ID Date Data Source -PPD Screening 02/12/2020 12:00:00 AM EST eCW1 ([facility]) Name Value Range Interpretation Code Description Data Jenny rce(s) Supporting Document(s) PAR Mfd by eCW1 ([facility]) 05/26 Exp Date eCW1 ([facility]) [id number] Lot# eCW1 ([facility]) 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 Read by eCW1 ([facility]) left forearm Location eCW1 ([facility]) 0 mm (if positive) eCW1 ([facility]) 02/14/2020 14:45 Read date/time eCW1 ([facility]) ID Date Data Source -Urine/Lab Specimen Collection 02/12/2020 12:00:00 AM EST eC W1 ([facility]) Name Value Range Interpretation Code Description Data Jenny rce(s) Supporting Document(s) -Urine/Lab Specimen Collection eCW1 ([facility]) Procedure Social History Code Duration Value Status Description Data Source(s ) 07/24/2020 10:24:15 AM EDT Never Smoker completed Never S moker [facility] Smoking 07/24/2020 10:24:00 AM EDT Never smoked tobacco (findi ng) completed Never smoked tobacco (finding) [facility] Smoking 03/11/2020 12:00:00 AM EST Never Smoker completed Never S moker eCW1 ([facility]) Smoking 03/11/2020 12:00:00 AM EST Never Smoker completed Never S moker eCW1 ([facility]) Smoking 03/11/2020 12:00:00 AM EST Never Smoker completed Never S moker eCW1 ([facility]) Smoking 03/11/2020 12:00:00 AM EST Never Smoker completed Never S moker eCW1 ([facility]) Smoking 03/11/2020 12:00:00 AM EST Never Smoker completed Never S moker eCW1 ([facility]) Smoking 03/11/2020 12:00:00 AM EST Never Smoker completed Never S moker eCW1 ([facility]) Vital Signs ID Date Data Source UNK Name Value Range Interpretation Code Description Data Source(s) Body temperature 97.8 [degF] 97.8 [degF] eCW1 ( [facility]) Body height 67 [in_i] 67 [in_i] eCW1 ([facility]) Body weight 107 [lb_av] 107 [lb_av] eCW1 ([facility]) Body mass index (BMI) [Ratio] 16.76 kg/m2 16.76 kg/m2 eCW1 ([facility]) Systolic blood pressure 102 mm[Hg] 102 mm[Hg] e CW1 ([facility]) Diastolic blood pressure 66 mm[Hg] 66 mm[Hg] eCW1 ([facility]) Body temperature 97.8 [degF] 97.8 [degF] eCW1 ( [facility]) Body weight 107 [lb_av] 107 [lb_av] eCW1 ([facility]) Systolic blood pressure 100 mm[Hg] 100 mm[Hg] e CW1 ([facility]) Diastolic blood pressure 58 mm[Hg] 58 mm[Hg] eCW1 ([facility]) Body height 165.[address] [facility] Body weight 52.[address] [facility] Body temperature 98.2 [degF] 98.2 [degF] [facility] Heart rate 74 /min 74 /min [facility] Respiratory rate 14 /min 14 /min [facility] ealt Oxygen saturation in Arterial blood by Pulse oximetry 98 % 98 % [facility] Systolic blood pressure 119 mm[Hg] 119 mm[Hg] [facility] Diastolic blood pressure 73 mm[Hg] 73 mm[Hg] [facility] Body temperature 98.7 [degF] 98.7 [degF] eCW1 ( [facility]) Body weight 112 [lb_av] 112 [lb_av] eCW1 ([facility]) Systolic blood pressure 100 mm[Hg] 100 mm[Hg] e CW1 ([facility]) Diastolic blood pressure 72 mm[Hg] 72 mm[Hg] eCW1 ([facility]) Body temperature 98.7 [degF] 98.7 [degF] eCW1 ( [facility]) Body weight 112 [lb_av] 112 [lb_av] eCW1 ([facility]) Systolic blood pressure 100 mm[Hg] 100 mm[Hg] e CW1 ([facility]) Diastolic blood pressure 72 mm[Hg] 72 mm[Hg] eCW1 ([facility]) Body temperature 95.4 [degF] 95.4 [degF] eCW1 ( [facility]) Body height 65 [in_i] 65 [in_i] eCW1 ([facility]) Body height 165.1 cm 165.1 cm eCW1 ([facility]) Body mass index (BMI) [Ratio] 19.2 kg/m2 19.2 k g/m2 eCW1 ([facility]) Oxygen saturation in Arterial blood by Pulse oximetry 100 % 100 % eCW1 ([facility]) Systolic blood pressure 126 mm[Hg] 126 mm[Hg] e CW1 ([facility]) Diastolic blood pressure 80 mm[Hg] 80 mm[Hg] eCW1 ([facility]) Body temperature 97.6 [degF] 97.6 [degF] eCW1 ( [facility]) Body weight 113 [lb_av] 113 [lb_av] eCW1 ([facility]) Systolic blood pressure 92 mm[Hg] 92 mm[Hg] e CW1 ([facility]) Diastolic blood pressure 58 mm[Hg] 58 mm[Hg] eCW1 ([facility]) Oxygen saturation in Arterial blood by Pulse oximetry % eCW1 ([facility]) Systolic blood pressure 98 mm[Hg] 98 mm[Hg] e CW1 ([facility]) Diastolic blood pressure 64 mm[Hg] 64 mm[Hg] eCW1 ([facility]) Body temperature 98.4 [degF] 98.4 [degF] eCW1 ( [facility]) Body height 65 [in_i] 65 [in_i] eCW1 ([facility]) Body height 165.1 cm 165.1 cm eCW1 ([facility]) Body mass index (BMI) [Ratio] 18.94 kg/m2 18.94 kg/m2 eCW1 ([facility]) Patient Treatment Plan of Care Planned Activity Planned Date Details Description Data Source (s) Metronidazole 500 MG Oral Tablet 04/16/2020 12:00:00 AM EST eCW1 ([facility]) Metronidazole 500 MG Oral Tablet 04/16/2020 12:00:00 AM EST eCW1 ([facility]) Fluconazole 150 MG Oral Tablet 04/15/2020 12:00:00 AM EST eCW1 ([facility]) Fluconazole 150 MG Oral Tablet 04/15/2020 12:00:00 AM EST eCW1 ([facility]) Fluconazole 150 MG Oral Tablet 04/15/2020 12:00:00 AM EST eCW1 ([facility])
--- OUTSIDE RECORDS SUMMARY | 2021-01-15 17:58 | CCD ---
Author Author [facility] Organization [facility] Address Unknown Phone Unavailable Care Team Providers Care Converter Skimmer Name Role Phone Stephanie Zarate Unavailable PROBLEMS Type Condition ICD9-CM Code [id number] Code Onset Dates Condition S tatus W/U Status Risk SNOMED Code Notes Problem Laceration of vulva, subsequent encounter S31.41XD Active confirmed 284046847 Problem Grade II hemorrhoids K64.1 Active confirmed 630563123 Problem Encounter for IUD removal Z30.432 Active confirmed 512999065 Problem Laceration of vulva, initial encounter S31.41XA Active confirmed 500160616 ALLERGIES Allergen (clinical drug ingredient) Drug/Non Drug Allergy do cumented on EMR Reaction Allergy Type Onset Date Status penicillin anaphylaxis Drug Allergy Active ENCOUNTERS from 1997 to 2020-11-04 Encounter Location Date Provider Diagnosis [facility] at [address] [phone] Oct, Stephanie Zarate IMMUNIZATIONS No Information SOCIAL HISTORY Sex Assigned At : Social History Observation Description Sex Assigned At Unknown Alcohol Screening Question Answer Notes Did you have a drink containing alcohol in the past year? Ye s Points 1 Interpretation Negative How often did you have a drink containing alcohol in t he past year? Monthly or less (1 point) How many drinks did you have on a typica l day when you were drinking in the past year? 1 or 2 (0 points) How often did you have six or more drinks on one occas ion in the past year? Never (0 points) REASON FOR REFERRAL No Information VITAL SIGNS No information MEDICATIONS No Information PROCEDURES No Information RESULTS No Results REASON FOR VISIT [facility] MEDICAL (GENERAL) HISTORY Type Description Date Medical History 09/05/2020 cervical cytology: negative Goals Section No Information Health Concerns No Information MEDICAL EQUIPMENT No Information MENTAL STATUS No Information FUNCTIONAL STATUS No Information ASSESSMENTS No Information PLAN OF TREATMENT No Information Insurance Providers Payer Name Payer Address Payer Phone Insured Name Patient Relati onship to Insured Coverage Start Date Coverage End Date [facility] [address] [facility] [id number] [place] self
[2021-01-15 19:00] LABS: BASO % 0.4 % (0.0-1.0); EOS # 0.2 10^3/uL (0.0-0.5); EOS % 2.3 % (0.0-3.0); HEMATOCRIT 35.7 % (36.0-47.0); HEMOGLOBIN 11.9 g/dl (12.0-15.5); LYMPH # 2.4 10^3/uL (1.5-5.0); LYMPH % 28.8 % (24.0-44.0); MEAN CORPUSCULAR HEMOGLOBIN 31.1 pg (27.0-33.0); MEAN CORPUSCULAR HGB CONC 33.3 g/dl (32.0-36.5); MEAN CORPUSCULAR VOLUME 93.2 fl (80.0-96.0); MONO # 0.5 10^3/uL (0.0-0.8); MONO % 5.8 % (2.0-8.0); NEUTROPHILS # 5.2 10^3/uL (1.5-8.5); NEUTROPHILS % 62.5 % (36.0-66.0); PLATELET COUNT, AUTOMATED 288 10^3/uL (150-450); RED BLOOD COUNT 3.83 10^6/uL (4.00-5.40); WHITE BLOOD COUNT 8.3 10^3/uL (4.0-10.0)
[2021-01-15 19:02] LABS: AMORPHOUS SEDIMENT SMALL (NEGATIVE); APPEARANCE, URINE TURBID (CLEAR); BACTERIA, URINE AUTO NEGATIVE (NEGATIVE); BILIRUBIN, URINE AUTO NEGATIVE (NEGATIVE); BLOOD, URINE BLOOD 1+ (NEGATIVE); COLOR, URINE YELLOW (YELLOW); GLUCOSE, URINE (UA) AUTO NEGATIVE (NEGATIVE); KETONE, URINE AUTO NEGATIVE (NEGATIVE); LEUKOCYTE ESTERASE, URINE AUTO TRACE (NEGATIVE); NITRITE, URINE AUTO NEGATIVE (NEGATIVE); PROTEIN, URINE AUTO NEGATIVE (NEGATIVE); RBC, URINE AUTO 0 /HPF (0-3); SPECIFIC GRAVITY URINE AUTO 1.016 (1.002-1.035); SQUAMOUS EPITHELIAL CELL UR AU 8 /HPF (0-6); UROBILINOGEN, URINE AUTO 0.2 mg/dL (0.0-2.0); WBC, URINE AUTO 0 /HPF (0-3)
--- OUTSIDE RECORDS SUMMARY | 2021-01-15 20:40 | CCD ---
Author Author [facility] Organization [facility] Address Unknown Phone Unavailable Care Team Providers Care Nuclear Fuel Processing Technician Name Role Phone MARIA L, M AMANDA [...] MARIA L, M AMANDA CNM Unavailable Unavailable Nba NEFF MD Unavailable [...] NEFF MD Unavailable Unavailable Gordo, L Janee SKID MAN Unavailable Unavailable Gordo, L Janee SKID MAN Unavailable Unavailable Gordo, L Janee SKID MAN Unavailable Unavailable Gordo, L Janee SKID MAN Unavailable Unavailable Gordo, L Janee SKID MAN Unavailable Unavailable Gordo, L Janee SKID MAN Unavailable Unavailable Gordo, L Janee SKID MAN Unavailable Unavailable Gordo, L Janee SKID MAN Unavailable Unavailable Gordo, L Janee SKID MAN Unavailable Unavailable Gordo, L Janee SKID MAN Unavailable Unavailable Gordo, L Janee SKID MAN Unavailable Unavailable Gordo, L Janee SKID MAN Unavailable Unavailable Gordo, L Janee SKID MAN Unavailable Unavailable LAROCK, Mica KNIGHT SKID MAN Unavailable Unavailable LAROCK, Mica KNIGHT SKID MAN Unavailable Unavailable LAROCK, Mica KNIGHT SKID MAN Unavailable Unavailable LAROCK, Mica KNIGHT SKID MAN Unavailable Unavailable LAROCK, Mica KNIGHT SKID MAN Unavailable Unavailable LAROCK, Mica KNIGHT SKID MAN Unavailable Unavailable LAROCK, Mica KNIGHT SKID MAN Unavailable Unavailable LAROCK, Mica KNIGHT SKID MAN Unavailable Unavailable LAROCK, Mica KNIGHT SKID MAN Unavailable Unavailable LAROCK, Mica KNIGHT SKID MAN Unavailable Unavailable LAROCK, Mica KNIGHT SKID MAN Unavailable Unavailable LAROCK, J ANTONIA SKID MAN Unavailable Unavailable LAROCK, Mica KNIGHT SKID MAN Unavailable Unavailable LAROCK, Mica KNIGHT SKID MAN Unavailable Unavailable LAROCK, Mica ANTONIA SKID MAN Unavailable Unavailable LAROCK, Mica KNIGHT SKID MAN Unavailable Unavailable LAROCK, Mica KNIGHT SKID MAN Unavailable Unavailable LAROCK, Mica KNIGHT SKID MAN Unavailable Unavailable LAROCK, Mica KNIGHT SKID MAN Unavailable Unavailable LAROCK, Mica KNIGHT SKID MAN Unavailable Unavailable LAROCK, Mica KNIGHT SKID MAN Unavailable Unavailable LAROCK, Mica KNIGHT SKID MAN Unavailable Unavailable HAM, LAB Unavailable Unavailable Sousou, [...] Unavailable Unavailable TURRIN, EMIR Unavailable Unavailable TURRIN, MEIR Unavailable Unavailable TURRIN, EMIR Unavailable Unavailable Groch, [...] is protected by Article 27-F of the [facility] Public Health law. If you continue you may have access to information: Regarding HIV / AIDS; Provided by facilities licensed or operated by the [facility] Office of Mental Health; or Provided by the [facility] Office for People With Developmental Disabilities. If such information is present, then the following [facility] mandated warning applies: This information has been [...] ) Drug allergy Penicillins Pen[facility]ins [facility] [place], Drug allergy Penicillins Penicillin RASH/HIVES [facility] Propensity to adverse reactions PENICILLINS PENICILLINS Hives [facility] Family History Family Member Name Family Member Gender Family Member Status Date o f Status Description Data Source(s) Unknown Condition [facility] Encounters Encounter Providers Location Date Indications Data Source(s ) Outpatient [address] [place] [id number] 10/28/2020 12:00:00 AM EDT eCW1 ([facility]) Outpatient Attender: ANTONIA PINA NP 10/02 01:15:26 PM EDT - 10/15/2020 03:07:35 PM EDT [facility] ([facility] ) Outpatient [address] [place], [place] [id number] 09/22/2020 12:00:00 AM EDT eCW1 ([facility]) Outpatient [address] [place], [place] [id number] 09/12/2020 12:00:00 AM EDT [facility] Outpatient [address] [place], [place] [id number] 09/08/2020 12:00:00 AM EDT eCW1 ([facility]) Outpatient Attender: AMANDA ZARATE CNM 09/05/2020 01:20: 00 PM EDT 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 Outpatient Attender: CYNTHIA NEFF MD 08/29 10:30:43 AM EDT - 08/29/2020 11:10:54 AM EDT [facility] ([facility] ) Outpatient Attender: Marvin Merino DO 08/26/2020 11:59:00 PM EDT [facility], Emergency Attender: Kalin Argueta 09:26:00 AM EDT - 07/24/2020 10:35:00 AM EDT Sinus Congestion [facility] Sinus Congestion Patient discharged. Outpatient [address] [place], [place] [id number] 07/13/2020 12:00:00 AM EDT [facility]CW1 [facility] Outpatient Attender: Janee Caro NP 07/08/2020 01:51:00 PM EDT OCO/PPD [facility] OCO/PPD Outpatient Attender: ANDER HAMReferrer: Jean Claude RobertoPavel RGHL MAGGIE-RGHLMYER 06/18/2020 09:58:16 AM EDT - 06/18/2020 11:59:16 PM EDT [facility] Patient discharged. Outpatient Attender: Emiljuventino Pavel 06/18/2020 09:58:00 AM EDT [facility] Outpatient Attender: Jean Claude RobertoPavel RMGSP-RMGSIM 021 11:50:29 AM EDT - 06/17/2020 01:00:31 PM EDT [facility] Patient discharged. Outpatient Attender: Janee Caro NP 06/06/2020 03:29:00 PM EST OCO/PPD [facility] OCO/PPD Outpatient [address] [place], [place] [id number] 04/16/2020 12:00:00 AM EST eCW1 [facility] Outpatient Attender: Sandy NAYLOR 04/15/2020 11:00:00 PM EST [facility] Client[facility] Outpatient [address] [place], [place] [id number] 04/15/2020 12:00:00 AM EST eCW1 [facility] Outpatient [address] [place], [place] [id number] 04/13/2020 12:00:00 AM EST eCW1 ([facility] Outpatient [address] [place], [place] [id number] 03/13/2020 12:00:00 AM EST eCW1 ([facility]) Outpatient [address] [place], [place] [id number] 03/12/2020 12:00:00 AM EST eCW1 ([facility]) Outpatient [address] [place], [place] 1 [id number] 03/11/2020 12:00:00 AM EST eCW1 ([facility]) Outpatient [address] [place], [place] [id number] 02/19/2020 12:00:00 AM EST eCW1 ([facility]) Outpatient [address] [place], [place] 1 [id number] 02/14/2020 12:00:00 AM EST eCW1 ([facility]) Outpatient [address] [place], [place] 1 [id number] 02/12/2020 12:00:00 AM EST eCW1 ([facility]) Outpatient [address] [place], [place] 1 [id number] 02/12/2020 12:00:00 AM EST eCW1 ([facility]) Outpatient [address] [place], [place] [id number] 02/04/2020 12:00:00 AM EST eCW1 ([facility]) Outpatient Attender: ANTONIA PINA NP 01/04 06:36:57 PM EDT - 02/02/2020 11:44:48 PM EDT [facility] ([facility] ) Immunizations Vaccine Date Status Description Data Source(s) Tdap 03/11/2020 12:34:00 PM EST completed e CW1 ([facility]) Tdap 03/11/2020 12:34:00 PM EST completed e CW1 ([facility]) Tdap 03/11/2020 12:34:00 PM EST completed e CW1 ([facility]) Tdap 03/11/2020 12:34:00 PM EST completed e CW1 ([facility]) Tdap 03/11/2020 12:34:00 PM EST completed e CW1 ([facility]) Tdap 03/11/2020 12:34:00 PM EST completed e CW1 ([facility]) Medications Medication Brand Name Start Date Product Form Dose Route Admi nistrative Instructions Pharmacy Instructions Status Indications Reaction Description Data Source(s) hydrocortisone acetate 25 MG/ML / Pramox ine hydrochloride 10 MG/ML Rectal Cream [Analpram HC] Analpram-HC 2.5%-1% Analpram-HC 2.5%-1% 09/05/2020 12:00:00 AM EDT 1.0 {appful} active Analpram-HC 2.5%-1% eCW1 ([facility]) Fluticasone Propionate (Flonase Allergy Relief) 50 mcg/actuation spray,suspension 07/24/2020 10:24:21 AM EDT UNASSIGNED 1 SPR NASAL active [facility] Metronidazole 500 MG Oral Tablet metronidazole 500 mg metron idazole 500 mg 04/16/2020 12:00:00 AM EST 1.0 {tab(s)} active metronidazole 500 mg eCW1 ([facility]) Metronidazole 500 MG Oral Tablet metronidazole 500 mg metron idazole 500 mg 04/16/2020 12:00:00 AM EST 1.0 {tab(s)} active metronidazole 500 mg eCW1 ([facility]) Fluconazole 150 MG Oral Tablet fluconazole 150 mg fluconazol e 150 mg 04/15/2020 12:00:00 AM EST 1.0 {tab(s)} active fl uconazole 150 mg eCW1 ([facility]) Fluconazole 150 MG Oral Tablet fluconazole 150 mg fluconazol e 150 mg 04/15/2020 12:00:00 AM EST 1.0 {tab(s)} active fl uconazole 150 mg eCW1 ([facility]) Fluconazole 150 MG Oral Tablet fluconazole 150 mg fluconazol e 150 mg 04/15/2020 12:00:00 AM EST 1.0 {tab(s)} active fl uconazole 150 mg eCW1 ([facility]) Kyleena 19.5 mg Kyleena 19.5 mg 02/19/2020 12:00:00 AM EST 1.0 { ea} active Kyleena 19.5 mg eCW1 ([facility]) Kyleena 19.5 mg Kyleena 19.5 mg 02/19/2020 12:00:00 AM EST 1.0 { ea} active Kyleena 19.5 mg eCW1 ([facility]) Kyleena 19.5 mg Kyleena 19.5 mg 02/19/2020 12:00:00 AM EST 1.0 { ea} active Kyleena 19.5 mg eCW1 ([facility]) Kyleena 19.5 mg Kyleena 19.5 mg 02/19/2020 12:00:00 AM EST 1.0 { ea} active Kyleena 19.5 mg eCW1 ([facility]) Kyleena 19.5 mg Kyleena 19.5 mg 02/19/2020 12:00:00 AM EST 1.0 { ea} active Kyleena 19.5 mg [facility]CW1 ([facility]) Kyleena 19.5 mg Kyleena 19.5 mg 02/19/2020 12:00:00 AM EST 1.0 { ea} active Kyleena 19.5 mg eCW1 ([facility]) Insurance Providers Payer name Policy type / Coverage type Policy ID Covered green party ID Covered green party's relationship to whelan Policy Whelan Plan Information SELF PAY [facility] emp [id number] Employee [id number] [facility] [id number] Self [id number] SELF PAY SELF PAY SELF PAY [place] [place] [id number] SP [id number] SELF PAY EAST [id number] SP [id number] Self 01 [id number] SELF PAY EAST [id number] SP [id number] [employer]AST [employer] [id number] [facility] HUMANA [id number] 2 [id number] FFS Self Pay Employee [place] - O/P [id number] 01 [id number] [facility] [id number] [id number] Problems, Conditions, and Diagnoses Code Display Name Description Problem Type Effective Dates Data Source(s) Z11.3 Encounter for screening for infections with a predominantly sexual mode of transmission Z11.3 - Encounter for screening for infe ctions with a predominantly sexual mode of transmission Diagnosis 09/05/2020 01:20:00 PM EDT [facility] Z12.4 Encounter for screening for malignant ne oplasm of cervix Z12.4 - Encounter for screening for malignant neoplasm of cervix Diagnosis 021 01:17:00 PM EDT [facility] [address] or not applicable Unspecified place or not applicable Diagnosis 09/01/2020 08:49:00 AM EDT [facility] [id number] Exposure to other specified factors, ini tial encounter Exposure to other specified factors, initial encounter Diagnosis 09/01/2020 08:49:00 AM EDT [facility] [id number] Laceration without foreign body of vagin a and vulva, initial encounter Laceration without foreign body of vagina and vulva, initial encounter Diagnosis 09/01/2020 08:49:00 AM EDT [facility] R51.9 R51.9 - Headache, unspecified R51.9 - Headache, unspec ified Diagnosis 07/24/2020 09:26:00 AM EDT [facility] R09.81 Nasal congestion R09.81 - Nasal congestion Diagnosis 07/24/2020 09:26:00 AM EDT [facility] R63.4 Abnormal weight loss Abnormal weight loss Diagnosis 06/18/2020 09:58:16 AM EDT [facility] Z20.2 Contact with and (suspected) exposure to infections with a predominantly sexual mode of transmission Contact with and (suspected) exposure to infections with a predominantly sexual mode of transmission Diagnosis 06/18 09:58:16 AM EDT [facility] F17.290 Nicotine dependence, other tobacco produ ct, uncomplicated Nicotine dependence, other tobacco product, uncomplicated Diagnosis 06/17 12:31:27 PM EDT [facility] Labs Only Labs Only Diagnosis 06/17/2020 11:50:29 AM ED T [facility] Establish Care Establish Care Diagnosis 06/17/2020 11:50: 29 AM EDT [facility] Z00.00 Encounter for general adult medical examination without abnormal findings Encounter for general adult medical examination withou t abnormal findings Diagnosis 06/17/2020 11:50:29 AM EDT [facility] K64.1 [id number] Grade II hemorrhoids Problem 09/12/2020 12:0 0:00 AM EDT eCW1 ([facility]) S31.41XD [id number] Laceration of vulva, subsequent encounter Problem 09/12/2020 12:00:00 AM EDT eCW1 ([facility]) S31.41XA [id number] Laceration of vulva, initial encounter Pr oblem 09/05/2020 12:00:00 AM EDT [facility] ([facility] Z30.432 [id number] Encounter for IUD removal Problem 02/19/2020 12:00:00 AM EST eCW1 ([facility]) Surgeries/Procedures No Information Results ID Date Data Source [id number] 09/19/2020 08:35:00 AM EDT [facility] Run: 09/19/2035 INTERFACED REPORT Name: Gallo Andrade Age/Sex: 25/F Location: [facility] Acct: [id number] Unit: [id number] Status: REG REF Room/Bed: Re09/05/20 Disch: Att Dr: Amanda Zarate Spec Num: [id number] Recd: 09/08/20 Status: KRYSTAL Adler Num: [id number] SpType: CYTOLOGY Sub Dr: Amanda Zarate Specimen [...] with Cristina SP. Specimen Identification Verified. Reviewing [facility] LD Run: 09/19/20 0835 INTERFACED REPORT Signed Andry Diaz MD 09/19/20 0835 END OF REPORT Name Value Range Interpretation Code Description Data Jenny rce(s) Supporting Document(s) ID Date Data Source [id number] 09/05/2020 03:22:00 PM EDT [facility] Name Value Range Interpretation Code Description Data Jenny rce(s) Supporting Document(s) CRISTINA BY DNA PROBE POSITIVE NEGATIVE A [facility] GARDNERELLA BY DNA PROBE NEGATIVE NEGATIVE [facility] TRICHOMONAS BY DNA PROBE NEGATIVE NEGATIVE [facility] TESTING PERFORMED BY NUCLEIC ACID HYBRI DIZATION ID Date Data Source [id number] 09/08/2020 02:51:00 PM EDT [facility] Name Value Range Interpretation Code Description Data Jenny rce(s) Supporting Document(s) CHLAMYDIA, GENITAL NEGATIVE NEGATIVE [facility] GC, Genital NEGATIVE NEGATIVE [facility] ID Date Data Source [id number] 09/01/2020 08:49:00 AM EDT [facility] 1 Medication Reconciliation Report [facility] Emergency Department [address] [place] [address] Phone #: ext- [phone] 09/01/2020 08:47 Patient: GALLO ANDRADE Sex: F : 1995 Age: 25yWeight: 52.1 kgHeight/Length: 65 in.BMI: 19.1ALLERGIES: PenicillinsThe patient's Home Medications are listed below:NONE.The source(s) of the original Home Medication information:Not obtained.The following Medications were given to the patient in the Emergency Department:None.The following Medi cations were prescribed to the patient:None. Name Value Range Interpretation Code Description Data [facility](s) Supporting Document(s) ID Date Data Source [id number] 09/01/2020 08:49:00 AM EDT [place] [address] Medication Administration Record [facility] Emergency Department [address] [place] [address] Phone #: ext- [phone] 09/01/2020 08:47 Patient: GALLO ANDRADE Sex: F : 1995 Age: 25yWeight: 52.1 kgHeight/Length: 65 inBMI: 19.1ALLERGIES: PenicillinsDate/Time Medication Administered Medication Ordered Name Value Range Interpretation Code Description Data [facility](s) Supporting Document(s) ID Date Data Source [id number] 09/01/2020 08:49:00 AM EDT [facility] 1 General Instructions [facility] Emergency Department [address] [place] [address] Phone #: ext- [phone] 09/01/2020 08:47 Patient: GALLO ANDRADE Sex: F : 1995 Age: 25ySmall Traumatic Skin Tear (Perineum).INSTRUCTIONS (PLEASE USE WARM SITZ BATHS AND TRIPLE ANTIBIOTIC NEEDED 3-4 TIMES PER DAY; FOLLOW UP WITH BIRD TENDER IN NEXT FEW DAYS).Warnings: Further evaluation is necessary (BIRD TENDER). It is very important to follow up [...] department as needed. Follow up with a shake splitter in three days even if well.Call for an appointment. Reason for referral: evaluation and treatment. Summary of care provided topatient via p aper.Understanding of the discharge instructions verbalized by patient. Expected course of injury, dischargeinstructions, activity level, diet, follow-up appointment and risks and benefits of treatment reviewed withpatient and spouse and understanding verbalized. Agrees to plan of care.Follow-up with: [facility], , , [address] [place] [address], [facility] Follow up in three days even if well. Call for an appointment. Reason for referral: evaluation andtreatment. Summary of care provided to patient via paper. 2 General Instructions [facility] Emergency Department [address] [place] [address] Phone #: ext- [phone] 09/01/2020 08:47 Patient: GALLO ANDRADE [facility]#: [id number] Sex: F : 1995 Age: 25y(Electronically signed by Emir Morris M.D. 09/01/2020 09:55) Name Value Range Interpretation Code Description Data Jenny rce(s) Supporting Document(s) ID Date Data Source [id number] 09/01/2020 08:49:00 AM EDT [facility] 1 Clinical Report - Nurses [facility] Emergency Department [address] [place] [address] Phone #: ext- [phone] 09/01/2020 08:47 Patient: GALLO ANDRADE Sex: F : 1995 Age: 25yTRIAGEArrived by private vehicle. Historian: patient.Triage time: 08:56 09/01/2020. Acuity: LEVEL 4.Chief Complaint: SKIN RASH and TENDER AREA.08:56 09/01/20. Alert. No acute distress.Reported as located on the perineum, vulva and perirectal area. Onset. (pain started 08/22, rash started 2days ago). It is described as painful.Treatment REALTIME COURT REPORTER:([facility] given Rx for unknown ointment- [...] Clover Becerra RN.AllergiesPenicillins.(hives) --09:00 09/01/20 Clover torres RN.Ixaqmre29:56 09/01/20.PAST MEDICAL HX: Immunizations: up-to-date. Last normal [...] had thoughts 2 Clinical Report - Nurses [facility] Emergency Department [address] [place] [address] Phone #: ext- [phone] 09/01/2020 08:47 ---- [...] room 1A. --09:03 09/01/20 Clover Becerra RN.PHYSICAL JXQINOMUVE04:01 09/01/20. Ambulatory to room.GENERAL / NEURO / [...] --09:03 09/01/20 Clover Becerra RN 09:25 09/01/20. [facility] Equipment provided for the genital exam by the physician and to witness discussions. --09:40 09/01/20 Clover Becerra RN.DISPOSITION / DISCHARGE 09:38 09/01/20. Condition at departure: stable. No learning barriers present. Discharge instructions provided and reviewed with the patient. Patient verbalized understanding. Written instructions provided in Dutch. The patient was discharged home and accompanied by spouse. She left ambulatory and via private vehicle. Spouse driving. --09:39 09/01/20 Clover Becerra RN 3 Clinical Report - Nurses [facility] Emergency Department [address] [place] [address] Phone #: ext- [phone] 09/01/2020 08:47 [id number] Sex[facility] F : 1995 Age: 25y 09:37 09/01/20. BP: 110/72. MAP: 84. HR: 88. RR: 16. O2 saturation: 100%. Temp: 98.2 F. Pain level now: 07/12. --09:39 09/01/20 Clover Becerra RN.Locked/Released at 09/01/2020 09:40 by Clover Becerra RN Name Value Range Interpretation Code Description Data Jenny rce(s) Supporting Document(s) ID Date Data Source [id number] 09/01/2020 08:49:00 AM EDT [facility] 1 Clinical Report - Physicians/Mid Levels [facility] Emergency Department [address] [place] [address] Phone #: ext- [phone] 09/01/2020 08:47 Patient: GALLO ANDRADE Sex: F [...] open 2 Clinical Report - Physicians/Mid Levels [facility] Emergency Department [address] [place] [address] Phone #: ext- [phone] 09/01/2020 08:47 Patient: GALLO ANDRADE Sex: F : 1995 Age: 25y traumatic tear, fissure-like, at bottom corner of major labia, above perineum). Extremities: Normal external inspection. Extremities nontender. Neuro: Oriented X 3. No motor deficit.PROGRESS AND PROCEDURESCourse of Care: 09:28 09/01/20. pt has small traumatic tear above perineum, at bottom of major labia,probably from intercourse; warm sitz baths and triple AB recommended and we will refer to BIRD TENDER; ptunderstands and agrees w d/c instructions. Patient [...] 3-4 TIMES PER DAY; FOLLOW UP WITH BIRD TENDER IN NEXT FEW DAYS). Warnings: Further evaluation is necessary (BIRD TENDER). It is very im portant to follow [...] department as needed. Follow up with a shake splitter in three days even if well. Call for an appointment. Reason for referral: evaluation and treatment. Summary of care provided to patient via paper. 3 Clinical Report - Physicians/Mid Levels [facility] Emergency Department [address] [place] [address] Phone #: ext- [phone] 09/01/2020 08:47 Patient: GALLO ANDRADE Sex: F : 1995 Age: 25y Understanding of the discharge instructions verbalized by patient. Expected course of injury, discharge instructions, activity level, diet, follow-up appointment and risks and benefits of treatment reviewed with patient and spouse and understanding verbalized. Agrees to plan of care. Follow-up with: [facility], , , [address] [place] [address], [facility] Follow up in three days even if well. Call for an appointment. Reason for referral: evaluation and treatment. Summary of care provided to patient via paper.(Electronically signed by Emir Morris M.D. 09/01/2020 09:55) Name Value Range Interpretation Code Description Data Jenny rce(s) Supporting Document(s) ID Date Data Source [id number] 07/26/2020 03:42:00 PM EDT [facility] Specimen Comment: Test(s) [id number] A, BASILIA; [id number] B, BASILIA Specimen Comment: was developed and its performance characteristics Specimen Comment: determined by [facility]. It has not been cleared or approved Specimen Comment: by the Food and Drug Administration. Name Value Range Interpretation Code Description Data Jenny rce(s) Supporting Document(s) INFLUENZA A, BASILIA Not Detected Not Detected [facility] INFLUENZA B, BASILIA Not Detected Not Detected [facility] Performed at: RN - [facility] [address] [id number] Preflight Mechanic: Selina Garcia MD, Phone: [phone] ID Date Data Source [id number] 07/24/2020 10:25:00 AM EDT [facility] Name Value Range Interpretation Code Description Data Jenny rce(s) Supporting Document(s) SARS-CoV-2 (COVID-19) N gene [Presence] in Nasopharynx by BASILIA with probe detection DETECTED [facility] This lab was ordered by [facility] and reported by [facility]. ID Date Data Source [id number] 07/24/2020 04:31:00 PM EDT [facility] Have you tested POSITIVE for Covid-19 i n the last 90 days? No Patient presents as: Symptomatic COVID Reason ED patient Priority Critical Results called to [phone] by Rena Flor at 1631 on 07/24/20 Name Value Range Interpretation Code Description Data Jenny rce(s) Supporting Document(s) COVID 19 (RHEONIX) DETECTED NOTDETECTED A [facility] This Laboratory test Result is Evidence of a Communicable Disease, and if Diagnosed, must be brought to the Local Health Unit. [facility] COVID-19 MDx Assay is an endpoint RT-PCR assay (MOLECULAR)intended for the qualitative detection of nucleic acid from SARS-CoV-2 in nasopharyngeal swabs. COVID testing using the [facility] analyzer was developed for the purpose of [...] public health authorities. ID Date Data Source [id number] 07/24/2020 10:20:00 AM EDT [address] [address] HEALTH INFORMATION MANAGEMENT ED/ Physician Report : [id number] Signed Patient: Gallo Andrade Acct:[id number] Unit: [id number] : 1995 Arrival Date: 07/24/20 Age/Sex: 24 / F Arrival Time: 0926 Copies to: Sandy Flores ENT HPI/JASSI General Chief Complaint: Throat Pain/Nasal Congestion Stated [...] Normal Affect Skin Skin exam: Dry, Intact, [place] and Warm Course Vital Signs Vi tameka [...] and has been encouraged to start taking yfbs-gac-stqacdu antihistamines. For any worsening symptoms or persistent [...] Use nasal spray as prescribed. Begin using umny-[id number]-szufrsr antihistamines as discussed. For any worsening symptoms [...] Date/Time <<Signature on File>> Initializing User: Alissa MORELAND 07/24/20 1020 Signed by: Alissa Iraheta 07/24/20 6822 Kalin Argueta MD 07/25/20 5911 Name Value Range Interpretation Code Description Data Jenny rce(s) Supporting Document(s) ID Date Data Source [id number] 06/18/2020 09:00:00 PM EDT [facility] have provided this patient pre-test co unseling for HIVtesting and they have consented to a screening test to bedraw today:->YesRelease to patient- >ImmediateLab Collect Name Value Range Interpretation Code Description Data Jenny rce(s) Supporting Document(s) eGFR BLACK [facility] For both eGFR and eGFR [...] exclude kidney disease. ID Date Data Source [id number] 06/18/2020 09:00:00 PM EDT [facility] I have provided this patient pre-test co unseling for HIVtesting and they have consented to a screening test to bedra today:->YesRelease to patient- >ImmediateLab Collect Name Value Range Interpretation Code Description Data Jenny rce(s) Supporting Document(s) TSH 0.55-4.78 Normal (applies to non-numeric resul ts) [facility] Method: Third Generation Ultrasensitive TSHTSH values may be falsely depressed, as low asless than 0.01 uIU/mL, for 48 to 72 hours in the presenceof fluorescein dyes. Please consider submitting samplesafter fluorescein clearance to prevent interference withTSH test results. ID Date Data Source [id number] 06/18/2020 09:00:00 PM EDT [facility] I have provided this patient pre-test co unseling for HIVtesting and they have consented to a screening test to bedrawn today:->YesRelease to patient- >ImmediateLab Collect Name Value Range Interpretation Code Description Data Jenny rce(s) Supporting Document(s) HEP B SURF AG NEG [NEGATIVE] Normal (applies to non-numeric re sults) [facility] ID Date Data Source [id number] 06/18/2020 09:00:00 PM EDT [facility] I have provided this patient pre-test co unseling for HIVtesting and they have consented to a screening test to bedraw today:->YesRelease to patient- >ImmediateLab Collect Name Value Range Interpretation Code Description Data Jenny rce(s) Supporting Document(s) eGFR [facility] ID Date Data Source [id number] 06/18/2020 09:00:00 PM EDT [facility] have provided this patient pre-test co unseling for HIVtesting and they have [facility] today:->YesRelease to patient- >ImmediateLab Collect Name Value Range Interpretation Code Description Data Jenny rce(s) Supporting Document(s) HEP B SURF AB [facility] NOTE: Any result >=10 mIU/mL implies imm unity. ID Date Data Source [id number] 06/19/2020 12:39:00 PM EDT [facility] I have provided this patient pre-test co unseling for HIVtesting and they have consented [facility] a [facility] today:->YesRelease to patient- >ImmediateLab Collect Name Value Range Interpretation Code Description Data Jenny rce(s) Supporting Document(s) HSV 1 GLYCOPROTEIN G AB, IGG <=0.8 Normal (applies to non-numeric results) [facility] <=0.8 AI NEGATIVE No HSV-1 IgG a ntibodies were detected.0.9-1.0 AI EQUIVOCAL A second sample should be drawn 4-6 weeks later and testing repeated.>=1.1 AI POSITIVE Indicates HSV-1 IgG antibodies were detected.. ID Date Data Source [id number] 06/19/2020 12:39:00 PM EDT [facility] I have provided this patient pre-test co unseling for HIVtesting and they have consented to a [facility] today:->YesRelease to patient- >ImmediateLab Collect Name Value Range Interpretation Code Description Data Jenny rce(s) Supporting Document(s) HSV 2 GLYCOPROTEIN G AB, IGG <=0.8 Normal (applies to non-numeric results) [facility] <=0.8 AI NEGATIVE No HSV-2 IgG a ntibodies were detected.0.9-1.0 AI EQUIVOCAL A second sample should be drawn 4-6 weeks later and testing repeated.>=1.1 AI POSITIVE Indicates HSV-2 IgG antibodies were detected. ID Date Data Source [id number] 06/19/2020 12:39:00 PM EDT [facility] I have provided this patient pre-test co unseling for HIVtesting and they have consented to a screening test to bedrawn today:->YesRelease to patient- >ImmediateLab Collect Name Value Range Interpretation Code Description Data Jenny rce(s) Supporting Document(s) T PALLIDUM AB, TOTAL Non-Reactive Non-Reactive Normal (deepthi lies to non-numeric results) [facility] ID Date Data Source [id number] 06/18/2020 09:00:00 PM EDT [facility] I have provided this patient pre-test co unseling for HIVtesting and they have consented to a screening test to bedrawn today:->YesRelease to patient- >ImmediateLab Collect Name Value Range Interpretation Code Description Data Jenny rce(s) Supporting Document(s) SODIUM 136-145 Normal (applies to non-numeric resul ts) [facility] POTASSIUM 3.5-5.1 Normal (applies to non-numeric resul ts) [facility] CHLORIDE 99-109 Normal (applies to non-numeric resul ts) [facility] CO2 20-31 Normal (applies to non-numeric results) [facility] ANION GAP 4.0-16.0 Normal (applies to non-numeric resul ts) [facility] BUN 9-23 Normal (applies to non-numeric results) [facility] CREATININE 0.5-1.1 Normal (applies to non-numeric resul ts) [facility] GLUCOSE 60-140 Normal (applies to non-numeric resul ts) [facility] NOTE: Random Glucose range 60-140 mg/dl Fasting Glucose range 60-99 mg/dl CALCIUM 8.6-10.2 Normal (applies to non-numeric resul ts) [facility] TOTAL PROTEIN 5.7-8.2 Normal (applies to non-numeric re sults) [facility] ALBUMIN 3.5-5.2 Normal (applies to non-numeric resul ts) [facility] GLOBULIN 1.6-3.6 Normal (applies to non-numeric resul ts) [facility] A/G RATIO 1.1-1.8 Above high normal [facility] BILI, TOTAL 0.3-1.2 Normal (applies to non-numeric resu lts) [facility] AST 14-34 Normal (applies to non-numeric results) [facility] ALT 1-33 Normal (applies to non-numeric results) [facility] ALK PHOS 53-141 Below low normal [facility] ID Date Data Source [id number] 06/18/2020 09:00:00 PM EDT [facility] I have provided this patient pre-test co unseling for HIVtesting and they have consented to a screening test to bedrawn today:->YesRelease to patient- >ImmediateLab Collect Name Value Range Interpretation Code Description Data Jenny rce(s) Supporting Document(s) HEPATITIS C ANTIBODY NEG [NEGATIVE] Normal (applies to non-num [place] results) [facility] ID Date Data Source [id number] 06/18/2020 09:00:00 PM EDT [facility] I have provided this patient pre-test co unseling for HIVtesting and they have consented to a screening test to bedrawn today:->YesRelease to patient- >ImmediateLab Collect Name Value Range Interpretation Code Description Data Jenny rce(s) Supporting Document(s) HEP B CORE AB, TOTAL NEG [NEGATIVE] Normal (applies to non-num [place] results) [facility] ID Date Data Source [id number] 06/18/2020 06:40:00 PM EDT [facility] I have provided this patient pre-test co unseling for HIVtesting and they have consented to a screening test to bedrawn today:->YesRelease to patient- >ImmediateLab Collect Name Value Range Interpretation Code Description Data Jenny rce(s) Supporting Document(s) HIV-1/2 Ag/Ab SCREEN Nonreactive NONREACTIVE Normal (deepthi lies to non-numeric results) [facility] NONREACTIVEFINAL INTERPRETATION Negati ve for antibodies to HIV-1, HIV-2 and P24 antigen.This information has been disclosed to you from CONFIDENTIALrecords which are protected by [place] State LAW. Statelaw prohibits you from making any [...] set forth in part 63,title 10, of [facility], sufficient authorization for furtherdisclosure. Disclosure of confidential HIV information thatoccurs as the result of a general authorization for therelease of medical or other information will be in violationof the state law and may result in a fine or a fci sentence..*IMPORTANT NOTICE*: Please note that current [facility] Department of Health Regulations require that patient`s name and address be provided for HIV-related testing. In the event that the laboratory is not provided with the patient`s name and/or address, you, being the physician, have a legal obligation as required by [facility], to report all cases of HIV infection, AIDS, or HIV-related illness. ID Date Data Source [id number] 06/18/2020 05:23:00 PM EDT [facility] I have provided this patient pre-test co unseling for HIVtesting and they [facility]:->YesRelease to patient- >ImmediateLab Collect Name Value Range Interpretation Code Description Data Jenny rce(s) Supporting Document(s) WBC 4.0-10.8 Normal (applies to non-numeric resul ts) [facility] RBC 3.80-5.20 Normal (applies to non-numeric resul ts) [facility] HGB 11.5-16.0 Normal (applies to non-numeric resul ts) [facility] HCT 34-47 Normal (applies to non-numeric results) [facility] MCV 81.0-99.0 Normal (applies to non-numeric resul ts) [facility] MCH 26.0-34.0 Normal (applies to non-numeric resul ts) [facility] MCHC 32.0-36.0 Normal (applies to non-numeric resul ts) [facility] RDW 11.5-15.0 Normal (applies to non-numeric resul ts) [facility] PLATELET COUNT 140-400 Normal (applies to non-numeric r esults) [facility] ID Date Data Source [id number] 04/15/2020 10:23:00 PM EST [facility] Name Value Range Interpretation Code Description Data Jenny rce(s) Supporting Document(s) CRISTINA BY DNA PROBE POSITIVE NEGATIVE [facility] GARDNERELLA BY DNA PROBE POSITIVE NEGATIVE [facility] TRICHOMONAS BY DNA PROBE NEGATIVE NEGATIVE [facility] TESTING PERFORMED BY NUCLEIC ACID HYBRI DIZATION ID Date Data Source [id number] 04/18/2020 11:08:00 AM EST [facility] Name Value Range Interpretation Code Description Data Jenny rce(s) Supporting Document(s) CHLAMYDIA, GENITAL NEGATIVE [facility]GATIVE [facility], Genital NEGATIVE NEGATIVE [facility] ID Date Data Source VAGINOSIS (BV) TEST 04/15/2020 12:00:00 AM EST eCW1 ([facility]) Name Value Range Interpretation Code Description Data Jenny rce(s) Supporting Document(s) POSITIVE NEGATIVE eCW1 ([facility]) NEGATIVE NEGATIVE eCW1 ([facility]) POSITIVE NEGATIVE eCW1 ([facility]) ID Date Data Source - Blood Draw Venipuncture 03/12/2020 12:00:00 AM EST eCW1 ([facility]) Name Value Range Interpretation Code Description Data Jenny rce(s) Supporting Document(s) - Blood Draw Venipuncture W1 ([facility]) ID Date Data Source MMR (IGG) PANEL (MEASLES, MUMPS, RUBELLA) 03/12/2020 12:00:0 0 AM EST W1 ([facility]) Name Value Range Interpretation Code Description Data Jenny rce(s) Supporting Document(s) Measles virus IgG Ab [Units/volume] in Serum by Immunoassay 266.00 MEASLES AB (IGG), IMMUNE STATUS [facility] ([facility]) Rubella virus IgG Ab [Units/volume] in Serum or Plasma by Immunoass ay 7.20 RUBELLA AB (IGG), IMMUNE STATUS [facility] ([facility]) Mumps virus IgG Ab [Units/volume] in Serum by Immunoassay 218.00 MUMPS VIRUS AB (IGG), IMMUNE STATUS [facility] ([facility]) ID Date Data Source -PPD Screening 02/12/2020 12:00:00 AM EST W1 ([facility]) Name Value Range Interpretation Code Description Data Jenny rce(s) Supporting Document(s) PAR Mfd by W1 ([facility]) 05/26 Exp Date W1 ([facility]) [id number] Lot# [id number] ([facility]) Cassia RELIEF PILOT-C Read by [facility] ([facility]) left forearm Location eCW1 ([facility]) 0 mm (if positive) eCW1 ([facility]) 02/14/2020 14:45 Read date/time eCW1 ([facility]) ID Date Data Source -Urine/Lab Specimen Collection 02/12/2020 12:00:00 AM EST eC W1 ([facility]) Name Value Range Interpretation Code Description Data Jenny rce(s) Supporting Document(s) -Urine/Lab Specimen Collection eCW1 ([facility]) Procedure Social History Code Duration Value Status Description Data Source(s ) 07/24/2020 10:24:15 AM EDT Never Smoker completed Never S moker [facility] Smoking 07/24/2020 10:24:00 AM EDT Never smoked tobacco (findi ng) completed Never smoked tobacco (finding) [facility] Smoking 03/11/2020 12:00:00 AM EST Never Smoker completed Never S moker eCW1 ([facility]) Smoking 03/11/2020 12:00:00 AM EST Never Smoker completed Never S moker eCW1 ([facility]) Smoking 03/11/2020 12:00:00 AM EST Never Smoker completed Never S moker eCW1 ([facility]) Smoking 03/11/2020 12:00:00 AM EST Never Smoker completed Never S moker eCW1 ([facility]) Smoking 03/11/2020 12:00:00 AM EST Never Smoker completed Never S moker eCW1 ([facility]) Smoking 03/11/2020 12:00:00 AM EST Never Smoker completed Never S moker eCW1 ([facility]) Vital Signs ID Date Data Source UNK Name Value Range Interpretation Code Description Data Source(s) Systolic blood pressure 102 mm[Hg] 102 mm[Hg] e CW1 ([facility]) Body temperature 97.8 [degF] 97.8 [degF] eCW1 ( [facility]) Body height 67 [in_i] 67 [in_i] eCW1 ([facility]) Body weight 107 [lb_av] 107 [lb_av] eCW1 ([facility]) Body mass index (BMI) [Ratio] 16.76 kg/m2 16.76 kg/m2 eCW1 ([facility]) Diastolic blood pressure 66 mm[Hg] 66 mm[Hg] eCW1 ([facility]) Body temperature 97.8 [degF] 97.8 [degF] eCW1 ( [facility]) Body weight 107 [lb_av] 107 [lb_av] eCW1 ([facility]) Systolic blood pressure 100 mm[Hg] 100 mm[Hg] e CW1 ([facility]) Diastolic blood pressure 58 mm[Hg] 58 mm[Hg] eCW1 ([facility]) Body weight 52.20 kg 52.20 kg [facility] Body height 165.1 cm 165.1 cm [facility] Respiratory rate 14 /min 14 /min [facility] ealt Oxygen saturation in Arterial blood by Pulse oximetry 98 % 98 % [facility] Systolic blood pressure 119 mm[Hg] 119 mm[Hg] O [facility] Diastolic blood pressure 73 mm[Hg] 73 mm[Hg] [facility] Body temperature 98.2 [degF] 98.2 [degF] [facility] Heart rate 74 /min 74 /min [facility] Diastolic blood pressure 72 mm[Hg] 72 mm[Hg] eCW1 ([facility]) Body temperature 98.7 [degF] 98.7 [degF] eCW1 ( [facility]) Body temperature 98.7 [degF] 98.7 [degF] eCW1 ( [facility]) Body weight 112 [lb_av] 112 [lb_av] eCW1 ([facility]) Systolic blood pressure 100 mm[Hg] 100 mm[Hg] e CW1 ([facility]) Body weight 112 [lb_av] 112 [lb_av] eCW1 ([facility]) Systolic blood pressure 100 mm[Hg] 100 mm[Hg] e CW1 ([facility]) Diastolic blood pressure 72 mm[Hg] 72 mm[Hg] eCW1 ([facility]) Body temperature 95.4 [degF] 95.4 [degF] eCW1 ( [facility]) Body height 65 [in_i] 65 [in_i] eCW1 ([facility]) Body height 165.1 cm 165.1 cm eCW1 ([facility]) Systolic blood pressure 126 mm[Hg] 126 mm[Hg] e CW1 ([facility]) Body mass index (BMI) [Ratio] 19.2 kg/m2 19.2 k g/m2 eCW1 ([facility]) Diastolic blood pressure 80 mm[Hg] 80 mm[Hg] eCW1 ([facility]) Oxygen saturation in Arterial blood by Pulse oximetry 100 % 100 % eCW1 ([facility]) Body temperature 97.6 [degF] 97.6 [degF] eCW1 ( [facility]) Body weight 113 [lb_av] 113 [lb_av] eCW1 ([facility]) Systolic blood pressure 92 mm[Hg] 92 mm[Hg] e CW1 ([facility]) Diastolic blood pressure 58 mm[Hg] 58 mm[Hg] eCW1 ([facility]) Oxygen saturation in Arterial blood by Pulse oximetry % eCW1 ([facility]) Systolic blood pressure 98 mm[Hg] 98 mm[Hg] e CW1 ([facility]) Diastolic blood pressure 64 mm[Hg] 64 mm[Hg] eCW1 ([facility]) Body temperature 98.4 [degF] 98.4 [degF] eCW1 ( [facility]) Body height 65 [in_i] 65 [in_i] eCW1 ([facility]) Body height 165.1 cm 165.1 cm eCW1 ([facility]) Body mass index (BMI) [Ratio] 18.94 kg/m2 18.94 kg/m2 eCW1 ([facility]) Patient Treatment Plan of Care Planned Activity Planned Date Details Description Data Source (s) Metronidazole 500 MG Oral Tablet 04/16/2020 12:00:00 AM EST eCW1 ([facility]) Metronidazole 500 MG Oral Tablet 04/16/2020 12:00:00 AM EST eCW1 ([facility]) Fluconazole 150 MG Oral Tablet 04/15/2020 12:00:00 AM EST eCW1 ([facility]) Fluconazole 150 MG Oral Tablet 04/15/2020 12:00:00 AM EST eCW1 ([facility]) Fluconazole 150 MG Oral Tablet 04/15/2020 12:00:00 AM EST eCW1 ([facility])
--- NOTE | 2021-01-15 21:47 | REPVR ---
PROCEDURE INFORMATION: Exam: US First Trimester, Transabdominal Exam date and time: 01/15/2021 8:08 PM Age: 25 years old Clinical indication: Pain; Other: Spotting; Gestational age or lmp: 5wks; ; Additional info: Vaginal bleeding TECHNIQUE: Imaging protocol: Real-time transabdominal obstetrical ultrasound of the maternal pelvis and a first trimester , less than 14 weeks 0 days, with image documentation. COMPARISON: No relevant prior studies available. FINDINGS: Gestation: Gestational sac within the uterus with yolk sac and no pole at this time. Mean sac size is 10 mm suggesting an age of 5 weeks 5 days. MATERNAL: Uterus: The uterus measures 6.5 cm in its cephalocaudad dimension and 4.6 x 2.8 cm in its AP and lateral dimensions. Cervix: Unremarkable. Right adnexa: The right ovary measures 2.8 x 3.6 x 2.5 cm and contains a cyst/follicle measuring 2.3 x 1.0 x 1.3 cm. There is right ovarian color flow with normal Doppler waveform tracings. Left adnexa: The left ovary measures 2.2 x 2.6 x 2.1 cm and demonstrates color flow and normal Doppler waveform tracings. Intraperitoneal space: No intraperitoneal free fluid. IMPRESSION: 1. Gestational sac within the endometrium with an estimated age of 5 weeks 5 days. There is a yolk sac but no pole at this time. Follow-up in 1-2 weeks may be of benefit for further evaluation. 2. Otherwise negative pelvic sonogram. Electronically signed by: Tuan Mott On 01/15/2021 21:47:11 PM
[2021-01-15 22:07] VITALS: BP 120/67
[2021-01-15 22:51] LABS: GC DNA AMPLIFICATION NEGATIVE (NEGATIVE)
== END 2021-01-15 22:10 | disposition home or self-care (01) ==
LOC: M ED 17:51
DX: O26.851 Spotting complicating pregnancy, first trimester (principal); Z3A.01 Less than 8 weeks gestation of pregnancy; Z88.0 Allergy status to penicillin

== ENCOUNTER → 2021-02-02 | Outpatient (CLI) | payer OTHER ==
[2021-02-02 12:48] LABS: HEMATOCRIT 36.4 % (36.0-47.0); HEMOGLOBIN 12.1 g/dl (12.0-15.5); MEAN CORPUSCULAR HEMOGLOBIN 31.1 pg (27.0-33.0); MEAN CORPUSCULAR HGB CONC 33.2 g/dl (32.0-36.5); MEAN CORPUSCULAR VOLUME 93.6 fl (80.0-96.0); PLATELET COUNT, AUTOMATED 284 10^3/uL (150-450); RED BLOOD COUNT 3.89 10^6/uL (4.00-5.40); WHITE BLOOD COUNT 9.4 10^3/uL (4.0-10.0)
[2021-02-02 13:56] LABS: HEPATITIS C VIRUS ABY INDEX < 0.0 INDEX (<0.8); HIV 1&2 SCREEN CENTAUR NEGATIVE (NEGATIVE)
[2021-02-02 14:10] LABS: GC DNA AMPLIFICATION NEGATIVE (NEGATIVE)
== END ==
LOC: M PLALAB 11:01
PROVIDERS: ATTEND Advanced Practice Midwife
DX: Z34.01 Encounter for supervision of normal first pregnancy, first trimester (principal)
CPT/HCPCS: 36415; 85027; 86762; 86780; 86803; 86850; 86900; 86901; 87086; 87340; 87389; 87491; 87591; G0463

== ENCOUNTER → 2021-03-03 | Outpatient (CLI) | payer OTHER ==
[~2021-03-03] MED LIST: ERGO500029
== END ==
LOC: M PLALAB 08:30
PROVIDERS: ATTEND Advanced Practice Midwife
DX: Z34.81 Encounter for supervision of other normal pregnancy, first trimester (principal)

== ENCOUNTER 2021-03-16 18:08 | Emergency (ER) | payer OTHER ==
[~2021-03-16] VITALS: Ht 165.1 cm; Wt 58.6 kg
[2021-03-16 18:09] VITALS: BP 125/68
[2021-03-16] MEDS ORDERED: ERGO500029 (18:17)
== END 2021-03-16 21:45 | disposition left against medical advice (07) ==
LOC: M ED 18:08
DX: Z53.21 Procedure and treatment not carried out due to patient leaving prior to being seen by health care provider (principal)

== ENCOUNTER → 2021-04-30 | Outpatient (CLI) | payer OTHER | LOC: M WHC 09:34 | PROVIDERS: ATTEND Advanced Practice Midwife | DX: Z34.02 Encounter for supervision of normal first pregnancy, second trimester (principal) ==

== ENCOUNTER → 2021-07-09 | Outpatient (CLI) | payer OTHER ==
[2021-07-09 16:16] LABS: HEMATOCRIT 32.3 % (36.0-47.0); HEMOGLOBIN 10.4 g/dl (12.0-15.5); MEAN CORPUSCULAR HEMOGLOBIN 29.5 pg (27.0-33.0); MEAN CORPUSCULAR HGB CONC 32.2 g/dl (32.0-36.5); MEAN CORPUSCULAR VOLUME 91.5 fl (80.0-96.0); PLATELET COUNT, AUTOMATED 304 10^3/uL (150-450); RED BLOOD COUNT 3.53 10^6/uL (4.00-5.40); WHITE BLOOD COUNT 11.6 10^3/uL (4.0-10.0)
[2021-07-09 19:11] LABS: GC DNA AMPLIFICATION NEGATIVE (NEGATIVE)
== END ==
LOC: M PLALAB 12:14
PROVIDERS: ATTEND Specialist
DX: Z34.02 Encounter for supervision of normal first pregnancy, second trimester (principal)

== ENCOUNTER → 2021-07-30 | Outpatient (CLI) | payer OTHER | LOC: M LAB 08:16 | PROVIDERS: ATTEND Specialist | DX: Z34.03 Encounter for supervision of normal first pregnancy, third trimester (principal); Z3A.00 Weeks of gestation of pregnancy not specified ==

== ENCOUNTER → 2021-08-21 | Outpatient (REF) | payer OTHER | LOC: M SFHCWAGY 13:10 | PROVIDERS: ATTEND Obstetrics & Gynecology | DX: Z36.85 Encounter for antenatal screening for Streptococcus B (principal); Z3A.36 36 weeks gestation of pregnancy ==

== ENCOUNTER 2021-09-12 00:12 | Outpatient (CLI) | payer OTHER ==
[~2021-09-12] VITALS: Ht 165.1 cm; Wt 76.4 kg
[2021-09-12 00:50] VITALS: BP 123/73
== END 2021-09-12 01:27 | disposition home or self-care (01) ==
LOC: M LDO 00:12
PROVIDERS: ATTEND Advanced Practice Midwife
DX: O60.03 Preterm labor without delivery, third trimester (principal); Z3A.39 39 weeks gestation of pregnancy
CPT/HCPCS: 59025; G0463

== ENCOUNTER 2021-09-18 08:25 | Inpatient (IN) | payer OTHER ==
[~2021-09-18] VITALS: Ht 165.1 cm; Wt 78.2 kg
[2021-09-18] VITALS (15 sets, daily range): BP systolic 111–144; BP diastolic 63–85
[2021-09-18] MEDS ORDERED: COLA100C5 PO (08:43)
[2021-09-18] MEDS ORDERED: PRENTAB9 PO (08:43)
[2021-09-18] MEDS ORDERED: HOME MED LIST COMPLETE! XX SCH (08:45)
[2021-09-18] MEDS ORDERED: VITAD400CA FT (09:13)
[2021-09-18] MEDS: miSOPROStol 50MCG 1/2 TABLET SL SCH ×2 (10:00→14:01)
[2021-09-18 10:03] LABS: HEMATOCRIT 30.3 % (36.0-47.0); HEMOGLOBIN 9.5 g/dl (12.0-15.5); MEAN CORPUSCULAR HEMOGLOBIN 27.1 pg (27.0-33.0); MEAN CORPUSCULAR HGB CONC 31.4 g/dl (32.0-36.5); MEAN CORPUSCULAR VOLUME 86.6 fl (80.0-96.0); PLATELET COUNT, AUTOMATED 383 10^3/uL (150-450); WHITE BLOOD COUNT 10.1 10^3/uL (4.0-10.0)
[2021-09-19] VITALS (42 sets, daily range): BP systolic 113–158; BP diastolic 59–96
[2021-09-19] MEDS ORDERED: diphenhydrAMINE 25MG CAP PO ONE
[2021-09-19] MEDS ORDERED: OXYTOCIN DRIP 30 UNITS in IV 1 EA IV SCH (09:30)
[2021-09-19] MEDS ORDERED: LR 1,000 ML IV ONE (11:15)
[2021-09-19] MEDS ORDERED: ePHEDrine SULFATE 25 MG/5 ML(5MG/ML) SYRINGE IVP PRN (12:20)
[2021-09-19] MEDS ORDERED: LR 500 ML IV PRN (12:20)
[2021-09-19] MEDS ORDERED: EPIDURAL/PCA KEYS XX PRN (12:20)
[2021-09-19] MEDS ORDERED: FENTANYL 2MCG/ML ROPIVACAINE 0.2% IN 0.9% NACL 100ML IVBAG As Ordered ONE (12:20)
[2021-09-19] MEDS ORDERED: diphenhydrAMINE 50MG/ML VIAL (J1200) IV PRN (12:20)
[2021-09-19] MEDS ORDERED: ONDANSETRON 4MG/2ML VIAL IV PRN (12:20)
[2021-09-19] MEDS ORDERED: NALOXONE INJ 0.4MG/1ML VIAL (J2310 PER 1MG) IV PRN (12:20)
[2021-09-19] MEDS: LR 1,000 ML IV SCH ×2 (12:25→18:35)
[2021-09-19] MEDS: FENTANYL/ROPIVACAINE/NACL BAG 100 ML EPIDURAL SCH ×2 (16:15→23:42)
[2021-09-19] MEDS ORDERED: BICITRA 30ML SOLN UDC PO ONE (23:10)
[2021-09-19] MEDS ORDERED: AZITHROMYCIN INJ 500 MG, VIAL MATE ADAPTER 1 EACH in NS 250 ML IV ONE (23:10)
[2021-09-19] MEDS ORDERED: ceFAZolin SOD 2 GM in IV 1 EA IV ONE (23:10)
[2021-09-19] MEDS ORDERED: ceFAZolin 2 GM/D5W 50 ML IV BAG (J0690 PER 500MG) As Ordered ONE (23:11)
[2021-09-19] MEDS ORDERED: AZITHROMYCIN INJ 500MG VIAL As Ordered ONE (23:12)
[2021-09-19] MEDS ORDERED: BICITRA 30ML SOLN UDC As Ordered ONE (23:12)
[2021-09-19] MEDS ORDERED: LIDOCAINE 2% W/EPINEPHRINE 20ML VIAL **PRES FREE As Ordered ONE (23:30)
[2021-09-19] MEDS ORDERED: dexameTHASONE 4 MG/ML 1ML VIAL (J1100 PER 1MG) As Ordered ONE (23:30)
[2021-09-19] MEDS ORDERED: OXYTOCIN INJ 10 UNITS/ML VIAL (J2590) As Ordered ONE (23:30)
[2021-09-19] MEDS ORDERED: KETOROLAC 60MG 2ML VIAL As Ordered ONE (23:30)
[2021-09-19] MEDS ORDERED: ONDANSETRON 4MG/2ML VIAL As Ordered ONE (23:30)
[2021-09-19] MEDS ORDERED: MORPHINE PRES-FREE INJ 10 MG/10 ML VIAL As Ordered ONE (23:31)
[2021-09-20] VITALS (18 sets, daily range): BP systolic 105–166; BP diastolic 53–86
[2021-09-20 00:15] LABS: CORD GAS ABE V -5.2; CORD GAS HCO3 V 21.9 MEQ/L; CORD GAS PCO2 V 47.6 mmHg; CORD GAS PH V 7.28 UNITS; CORD GAS PO2 V 32.1 mmHg; CORD GAS SBC V 19.6 MEQ/L; CORD GAS TCO2 V 23.3 MEQ/L
[2021-09-20 00:17] LABS: CORD GAS ABE A -5.6; CORD GAS HCO3 A 22.5 MEQ/L; CORD GAS O2 SAT A 23.4 %; CORD GAS PCO2 A 53.5 mmHg; CORD GAS PH A 7.242 UNITS; CORD GAS PO2 A 14.7 mmHg; CORD GAS SBC A 18.2 MEQ/L; CORD GAS TCO2 A 24.2 MEQ/L
[2021-09-20] MEDS ORDERED: oxyCODONE 5MG TAB PO PRN (00:25)
[2021-09-20] MEDS ORDERED: fentaNYL 100 MCG/2 ML INJECTION IV PRN (00:25)
[2021-09-20] MEDS ORDERED: ONDANSETRON 4MG/2ML VIAL IV PRN ×2 (00:25)
[2021-09-20] MEDS ORDERED: NALOXONE INJ 0.4MG/1ML VIAL (J2310 PER 1MG) IV PRN ×2 (00:25)
[2021-09-20] MEDS ORDERED: LR 1,000 ML IV SCH (00:25)
[2021-09-20] MEDS ORDERED: METOCLOPRAMIDE INJ 10MG/2ML VIAL (J2765 PER 1) IV PRN (00:25)
[2021-09-20] MEDS ORDERED: **NOTE PATIENT COMMENT** MISC XX SCH (00:25)
[2021-09-20] MEDS ORDERED: MEPERIDINE INJ 25 MG/ML VIAL (J2175) IV PRN (00:25)
[2021-09-20] MEDS ORDERED: DOCUSATE SODIUM 100MG CAPSULE PO PRN (00:30)
[2021-09-20] MEDS ORDERED: SIMETHICONE 80MG CHEW TAB PO PRN (00:30)
[2021-09-20] MEDS ORDERED: RHOGAM 300 MCG (1500 IU) INJ (J2790) IM SCH (00:30)
[2021-09-20] MEDS ORDERED: PERCOCET 5MG/325MG TAB PO PRN ×2 (00:30)
[2021-09-20] MEDS: SLF 3 ML SYR IV SCH ×3 (01:00→17:44)
[2021-09-20] MEDS ORDERED: OXYTOCIN DRIP 30 UNITS in IV 1 EA IV ONE (01:10)
[2021-09-20] MEDS ORDERED: OXYTOCIN DRIP 30 UNITS in IV 1 EA IV SCH (02:00)
[2021-09-20] MEDS: diphenhydrAMINE 50MG/ML VIAL (J1200) IV PRN ×2 (04:24→19:40)
[2021-09-20] MEDS: LR 1,000 ML IV SCH ×2 (04:25→12:30)
[2021-09-20] MEDS: KETOROLAC 30 MG/ML 1ML VIAL IV SCH ×3 (05:20→17:44)
[2021-09-20] MEDS: PRENATAL VITAMINS CHEWABLE TABLET PO SCH (09:46)
[2021-09-21 02:00] VITALS: BP 117/72
[2021-09-21] MEDS: IBUPROFEN 800 MG TAB PO SCH ×3 (02:00→18:09)
[2021-09-21 05:44] VITALS: BP 116/65
[2021-09-21] MEDS ORDERED: IBUP80TA PO (06:01)
[2021-09-21] MEDS ORDERED: OXYC1TAB23 PO (06:01)
[2021-09-21 06:55] LABS: HEMATOCRIT 21.3 % (36.0-47.0); MEAN CORPUSCULAR HEMOGLOBIN 27.3 pg (27.0-33.0); MEAN CORPUSCULAR HGB CONC 31.5 g/dl (32.0-36.5); MEAN CORPUSCULAR VOLUME 86.9 fl (80.0-96.0); PLATELET COUNT, AUTOMATED 299 10^3/uL (150-450); RED BLOOD COUNT 2.45 10^6/uL (4.00-5.40); WHITE BLOOD COUNT 13.9 10^3/uL (4.0-10.0)
[2021-09-21 06:59] LABS: HEMOGLOBIN 6.7 g/dl (12.0-15.5)
[2021-09-21] MEDS: PRENATAL VITAMINS CHEWABLE TABLET PO SCH (08:19)
[2021-09-21 10:00] VITALS: BP 129/81
[2021-09-21 14:00] VITALS: BP 129/80
[2021-09-21 18:00] VITALS: BP 126/72
[2021-09-21 22:00] VITALS: BP_SYST 128; BP_SYST 138; BP_DIAS 68; BP_DIAS 71
[2021-09-22 01:48] VITALS: BP 128/71
[2021-09-22] MEDS: IBUPROFEN 800 MG TAB PO SCH (01:56)
[2021-09-22 06:00] VITALS: BP 130/73
[2021-09-22] MEDS: PRENATAL VITAMINS CHEWABLE TABLET PO SCH (08:40)
[2021-09-22] MEDS ORDERED: MEASLES,MUMPS,RUBELLA VACCINE INJ (MMR-II) (90707) SC.IMMUN ONE (09:00)
== END 2021-09-22 11:55 | disposition home or self-care (01) | DRG 773 ==
LOC: M LDI 08:25 → M OBS 09-20 02:00
PROVIDERS: ADMIT Specialist; ATTEND Specialist
PROC: 3E0DXGC Introduction of Other Therapeutic Substance into Mouth and Pharynx, External Approach (ICD-10-PCS; 2021-09-18)
PROC: 3E033VJ Introduction of Other Hormone into Peripheral Vein, Percutaneous Approach (ICD-10-PCS; 2021-09-18)
PROC: 10D00Z1 Extraction of Products of Conception, Low, Open Approach (ICD-10-PCS; principal; 2021-09-20 00:04)
DX: O48.0 Post-term pregnancy (principal); Z37.0 Single live birth; Z3A.40 40 weeks gestation of pregnancy; Z88.0 Allergy status to penicillin; O32.4XX0 Maternal care for high head at term, not applicable or unspecified

== ENCOUNTER 2022-05-27 17:28 | Emergency (ER) | payer OTHER ==
[~2022-05-27] VITALS: Ht 165.1 cm; Wt 57.3 kg
[~2022-05-27 17:28] MED LIST changes: +COLA100C5 PO; +IBUP80TA PO; +OXYC1TAB23 PO; +PRENTAB9 PO; +VITAD400CA FT
[2022-05-27 17:29] VITALS: BP 118/67
[2022-05-27 20:44] LABS: APPEARANCE, URINE HAZY (CLEAR); BACTERIA, URINE AUTO 1+ (NEGATIVE); BILIRUBIN, URINE AUTO NEGATIVE (NEGATIVE); BLOOD, URINE BLOOD 2+ (NEGATIVE); COLOR, URINE YELLOW (YELLOW); GLUCOSE, URINE (UA) AUTO NEGATIVE (NEGATIVE); KETONE, URINE AUTO NEGATIVE (NEGATIVE); LEUKOCYTE ESTERASE, URINE AUTO NEGATIVE (NEGATIVE); MUCUS, URINE LARGE (NEGATIVE); NITRITE, URINE AUTO NEGATIVE (NEGATIVE); PROTEIN, URINE AUTO NEGATIVE (NEGATIVE); RBC, URINE AUTO 2 /HPF (0-3); SQUAMOUS EPITHELIAL CELL UR AU 8 /HPF (0-6); UROBILINOGEN, URINE AUTO 0.2 mg/dL (0.0-2.0); WBC, URINE AUTO 5 /HPF (0-3)
== END 2022-05-27 21:18 | disposition home or self-care (01) ==
LOC: M ED 17:28
DX: O20.0 Threatened abortion (principal); Z3A.01 Less than 8 weeks gestation of pregnancy; Z88.0 Allergy status to penicillin; Z79.810 Long term (current) use of selective estrogen receptor modulators (SERMs)

== ENCOUNTER → 2022-06-21 | Outpatient (CLI) | payer OTHER | LOC: M PLALAB 11:17 | PROVIDERS: ATTEND Advanced Practice Midwife | DX: O03.9 Complete or unspecified spontaneous abortion without complication (principal) | CPT/HCPCS: 36415; 84702; G0463 ==

== ENCOUNTER → 2022-07-07 | Outpatient (CLI) | payer OTHER | LOC: M PLALAB 11:30 | PROVIDERS: ATTEND Advanced Practice Midwife | DX: O03.9 Complete or unspecified spontaneous abortion without complication (principal) ==

== ENCOUNTER → 2023-01-18 | Outpatient (CLI) | payer OTHER ==
[2023-01-18 16:10] LABS: HEMATOCRIT 36.3 % (36.0-47.0); MEAN CORPUSCULAR HEMOGLOBIN 31.2 pg (27.0-33.0); MEAN CORPUSCULAR HGB CONC 33.1 g/dl (32.0-36.5); MEAN CORPUSCULAR VOLUME 94.3 fl (80.0-96.0); PLATELET COUNT, AUTOMATED 311 10^3/uL (150-450); RED BLOOD COUNT 3.85 10^6/uL (4.00-5.40); WHITE BLOOD COUNT 12.7 10^3/uL (4.0-10.0)
[2023-01-18 17:06] LABS: HIV 1&2 SCREEN NEGATIVE (NEGATIVE)
[2023-01-18 17:12] LABS: HEPATITIS C VIRUS ABY INDEX 0.05 INDEX (<0.8)
[2023-01-18 17:37] LABS: CHLAMYDIA DNA AMPLIFICATION NEGATIVE (NEGATIVE); GC DNA AMPLIFICATION NEGATIVE (NEGATIVE)
== END ==
LOC: M PLALAB 14:29
PROVIDERS: ATTEND Advanced Practice Midwife
DX: O30.041 Twin pregnancy, dichorionic/diamniotic, first trimester (principal); Z3A.00 Weeks of gestation of pregnancy not specified
CPT/HCPCS: 36415; 85027; 86762; 86780; 86803; 86850; 86900; 86901; 87086; 87340; 87389; 87810; 87850; G0463

== ENCOUNTER → 2023-02-01 | Outpatient (CLI) | payer OTHER | LOC: M PLALAB 10:27 | PROVIDERS: ATTEND Obstetrics & Gynecology | DX: Z34.80 Encounter for supervision of other normal pregnancy, unspecified trimester (principal) | CPT/HCPCS: 36415; 76815; G0463 ==